=== PATIENT | male | born 1970 | race Two or more races ===

== ENCOUNTER 2018-12-11 10:36 | Inpatient (IN) | payer OTHER ==
[2018-12-11] MEDS ORDERED: ACETAMINOPHEN 1000 MG/100 ML VIAL (NON FORMULARY) IVPB ONE (11:20)
[2018-12-11] MEDS ORDERED: SODIUM CHLORIDE 1,000 ML IV STA (11:20)
--- NOTE | 2018-12-11 11:20 | PDOC ---
History of Present Illness - General Chief Complaint: Pain, Acute Stated Complaint: LT SIDED BACK PAIN Time Seen by Provider: 12/11/18 10:58 History Source: Patient Exam Limitations: No Limitations - History of Present Illness Initial Comments: 12/11/18 14:55 Patient is a 48-year-old male with past medical history of right-sided nephrectomy for reoccurring infections, left-sided kidney cyst, presents to the emergency department today for hematuria and left-sided flank pain since yesterday. Patient states that it also hurts when he pees and he has associated nausea and chills. He states he took Tylenol at home with no relief of his symptoms. Patient has not had nephrology follow-up in the last few months as he moved from [facility], [place]. Denies fevers, vomiting, diarrhea, constipation, chest pain and shortness of breath. Past History - Travel Traveled outside of the country in the last 30 days: No Close contact w/someone who was outside of country & ill: No - Past Medical History Allergies/Adverse Reactions: Allergies Allergy/AdvReac Type Severity Reaction Status Date / Time Penicillins Allergy Severe Hives Verified 12/11/18 10:43 Home Medications: Ambulatory Orders Amlodipine Besylate [Norvasc -] 5 mg PO DAILY 12/11/18 Hydralazine HCl 25 mg PO DAILY 12/11/18 Paroxetine HCl [Paxil] 30 mg PO DAILY 12/11/18 COPD: No Diabetes: Yes Disorders: Yes (right kidney removed from "many issues") HTN: Yes Kidney Stones: Yes - Immunization History Immunization Up to Date: Yes - Suicide/Smoking/Psychosocial Hx Smoking History: Never smoked Hx Alcohol Use: No Drug/Substance [facility] Review of Systems - Review of Systems Able to Perform ROS?: Yes Comments:: 12/11/18 11:12 CONSTITUTIONAL: Present: chills Absent: fever, chills, diaphoresis, generalized weakness, malaise, loss of appetite HEENT: Absent: rhinorrhea, nasal congestion, throat pain, throat swelling, difficulty swallowing, mouth swelling, ear pain, eye pain, visual Changes CARDIOVASCULAR: Absent: chest pain, loss of consciousness, palpitations, irregular heart rate, peripheral edema RESPIRATORY: Absent: cough, shortness of breath, dyspnea with exertion, orthopnea, wheezing, stridor, hemoptysis GASTROINTESTINAL: Present: nausea Absent: abdominal pain, abdominal distension, vomiting, diarrhea, constipation, melena, hematochezia GENITOURINARY: Present: Flank pain, hematuria Absent: dysuria, frequency, urgency, hesitancy, genital pain MUSCULOSKELETAL: Absent: myalgia, arthralgia, joint swelling SKIN: Absent: rash, itching, pallor HEMATOLOGIC/IMMUNOLOGIC: Present: frequent kidney infections Absent: easy bleeding, easy bruising, lymphadenopathy ENDOCRINE: Absent: unexplained weight gain, unexplained weight loss, heat intolerance, cold intolerance NEUROLOGIC: Absent: headache, focal weakness or paresthesias, dizziness, unsteady gait, seizure, mental status changes, bladder or bowel incontinence PSYCHIATRIC: Absent: anxiety, depression, suicidal or homicidal ideation, hallucinations. Is the patient limited Romanian proficient: No *Physical Exam - Vital Signs Last Vital Signs Temp Pulse Resp BP Pulse Ox 98.1 F 122 H 20 146/97 98 12/11/18 10:40 12/11/18 10:40 12/11/18 10:40 12/11/18 10:40 12/11/18 10:40 - Physical Exam Comments: 12/11/18 14:52 GENERAL: Well developed, well nourished. Awake and alert. Pacing the vertical area, appears uncomfortable. HEENT: Normocephalic, atraumatic. PERRLA, EOMI. No conjunctival pallor. Sclera are non- icteric. Moist mucous membranes. Oropharynx is clear. NECK: Supple. Full ROM. No JVD. Carotid pulses 2+ and symmetric, without bruits. No thyromegaly. No lymphadenopathy. CARDIOVASCULAR: Regular rate and rhythm. No murmurs, rubs, or gallops. Distal pulses are 2+ and symmetric. PULMONARY: No evidence of respiratory distress. Lungs clear to auscultation bilaterally. No wheezing, rales or rhonchi. ABDOMINAL: Soft. Non-tender. Non-distended. No rebound or guarding. No organomegaly. Normoactive bowel sounds. MUSCULOSKELETAL Normal range of motion at all joints. No bony deformities or tenderness. (+) L CVA tenderness. EXTREMITIES: No cyanosis. No clubbing. No edema. No calf tenderness. SKIN: Warm and dry. Normal capillary refill. No rashes. No jaundice. NEUROLOGICAL: Alert, awake, appropriate. Cranial nerves 2-12 intact. No deficits to light touch and temperature in face, upper extremities and lower extremities. No motor deficits in the in face, upper extremities and lower extremities. Normoreflexic in the upper and lower extremities. Normal speech. Toes are down- going bilaterally. Gait is normal without ataxia. PSYCHIATRIC: Cooperative. Good eye contact. Appropriate mood and affect. 12/11/18 14:53 Moderate Sedation - Procedure Monitoring Vital Signs: Procedure Monitoring Vital Signs Temperature 98.1 F 12/11/18 10:40 Pulse Rate 122 H 12/11/18 10:40 Respiratory Rate 20 12/11/18 10:40 Blood Pressure 146/97 12/11/18 10:40 O2 Sat by Pulse Oximetry (%) 98 12/11/18 10:40 ED Treatment Course - LABORATORY CBC & Chemistry Diagram: 12/11/18 11:44 12/11/18 11:44 Medical Decision Making - Medical Decision Making 12/11/18 14:55 Patient is a 48-year-old male past medical history of right-sided nephrectomy, left-sided kidney cyst, who presents to the ER today for 1 day of L flank pain, nausea and chills. On exam patient with significant left-sided CVA tenderness. Labs, urine, spiral CT, renal ultrasound ordered. IV Tylenol, fluids given. Urine shows trace leukocytes, 20 white blood cells. Nitrate negative CAT scan shows no stones, hydronephrosis Renal ultrasound shows no evidence of cyst on the left. Most likely pyelonephritis at this time given flank pain and nausea with associated UTI. Pen allergic, dose of levaquin ordered. Oxycodone for pain Given patient is high risk as he only has one working kidney Will admit. Margaret welch. 12/11/18 15:32 Case discussed with SWAGER OPERATOR Naila Simmons, will take patient for obs under Dr. Stafford *DC/Admit/Observation/Transfer Diagnosis at time of Disposition: Acute pyelonephritis - Discharge Dispostion Condition at time of disposition: Stable Decision to Admit order: Yes - Referrals - Patient Instructions - Post Discharge Activity
--- NOTE | 2018-12-11 11:25 | PDOC ---
*Physical Exam - Vital Signs Last Vital Signs Temp Pulse Resp BP Pulse Ox 98.1 F 122 H 20 146/97 98 12/11/18 10:40 12/11/18 10:40 12/11/18 10:40 12/11/18 10:40 12/11/18 10:40 ED Treatment Course - LABORATORY CBC & Chemistry Diagram: 12/12/18 05:40 12/11/18 11:44 Medical Decision Making - Medical Decision Making 12/11/18 11:24 48 yo m with prior history of right nephrectomy 2/2 pyelonephritis Pt presents with left CVA tenderness and pain No fevers or chills Will do labs, Spiral CT Laboratory Tests 12/11/18 12/11/18 12/11/18 11:44 11:44 13:46 WBC 8.0 Hgb 14.0 Hct 41.4 Plt Count 266 BUN 16 Creatinine 1.4 H Urine Ketones Trace H Ur Leukocyte Esterase 1+ H Urine WBC (Auto) 9 Urine RBC (Auto) 2 Urine Bacteria Moderate Anticipate admission Levaquin ordered (pt reports severe PCN allergy) Agree with plan by FALLON Roach 12/11/18 11:28 *DC/Admit/Observation/Transfer Diagnosis at time of Disposition: Acute pyelonephritis - Discharge Dispostion Condition at time of disposition: Stable - Referrals - Patient Instructions - Post Discharge Activity
[2018-12-11] MEDS ORDERED: ACETAMINOPHEN INJECTION 100 ML IVPB ONE (11:39)
[2018-12-11 12:04] LABS: BASO % 0.5 % (0-2.0); EOS % 1.6 % (0-4.5); HEMATOCRIT 41.4 % (35.4-49); LYMPH % 23.7 % (8-40); MCHC 33.7 g/dl (32.0-35.9); MEAN CELL VOLUME 83.2 fl (80-96); MEAN PLT VOLUME 8.7 fl (7.5-11.1); MONO % 8.3 % (3.8-10.2); NEUT % 65.9 % (42.8-82.8); PLATELET COUNT 266 K/MM3 (134-434); RBC 4.98 M/mm3 (4.00-5.60); RDW 14.6 % (11.9-15.9)
[2018-12-11 12:51] LABS: ALBUMIN 3.7 g/dl (3.4-5.0); ALK PHOS 86 U/L (45-117); ANION GAP 5 MMOL/L (8-16); BILIRUBIN,TOTAL 0.2 mg/dL (0.2-1); BLOOD UREA NITROGEN 16 mg/dL (7-18); CALCIUM 8.8 mg/dL (8.5-10.1); CHLORIDE 110 mmol/L (98-107); CO2 27 mmol/L (21-32); CREATININE 1.4 mg/dL (0.55-1.3); GLUCOSE,RANDOM 121 mg/dL (74-106); SGOT/AST 15 U/L (15-37); SGPT/ALT 25 U/L (13-61); SODIUM 142 mmol/L (136-145); TOT PROT 7.2 g/dl (6.4-8.2)
[2018-12-11 13:03] LABS: INR 0.99 (0.83-1.09); PROTHROMBIN TIME (PATIENT) 11.7 SEC (9.7-13.0)
[2018-12-11 14:16] LABS: URINE APPEARANCE SLCLOUDY; URINE BILIRUBIN NEGATIVE (<2.0 mg/dL); URINE COLOR YELLOW; URINE GLUCOSE (UA) NEGATIVE (NEGATIVE); URINE KETONE TRACE (NEGATIVE); URINE LEUK ESTERASE 1+ (NEGATIVE); URINE NITRITE NEGATIVE (NEGATIVE); URINE PROTEIN NEGATIVE (NEGATIVE)
[2018-12-11 14:18] LABS: CALCIUM OXALATE CRYSTALS RARE /hpf (NONE SEEN); EPI CELLS RARE /HPF (FEW); URINE BACTERIA MODERATE /hpf (NONE SEEN); URINE MUCUS RARE
[2018-12-11] MEDS ORDERED: oxyCODONE HCL 5 MG TABLET PO ONE (14:34)
[2018-12-11] MEDS ORDERED: METOCLOPRAMIDE HCL INJECTION 10 MG/2 ML VIAL IVPB ONE (14:52)
[2018-12-11] MEDS ORDERED: oxyCODONE HCL 5 MG TABLET ONE (15:42)
--- NOTE | 2018-12-11 15:45 | PN ---
Physical Exam: SUBJECTIVE: Patient seen and examined OBJECTIVE: Vital Signs Period Temp Pulse Resp BP Sys/Ann Pulse Ox Last 24 Hr 98.1 F 122 20 146/97 98 GENERAL: The patient is awake, alert, and fully oriented, in no acute distress. HEAD: Normal with no signs of trauma. EYES: PERRL, extraocular movements intact, sclera anicteric, conjunctiva clear. No ptosis. ENT: Ears normal, nares patent, oropharynx clear without exudates, moist mucous membranes. NECK: Trachea midline, full range of motion, supple. LUNGS: Breath sounds equal, clear to auscultation bilaterally, no wheezes, no crackles, no accessory muscle use. HEART: Regular rate and rhythm, S1, S2 without murmur, rub or gallop. ABDOMEN: Soft, nontender, nondistended, normoactive bowel sounds, no guarding, no rebound, no hepatosplenomegaly, no masses. EXTREMITIES: 2+ pulses, warm, well-perfused, no edema. NEUROLOGICAL: Cranial nerves II through XII grossly intact. Normal speech, gait not observed. PSYCH: Normal mood, normal affect. SKIN: Warm, dry, normal turgor, no rashes or lesions noted Laboratory Results - last 24 hr 12/11/18 12/11/18 12/11/18 11:44 11:44 11:44 WBC 8.0 RBC 4.98 Hgb 14.0 Hct 41.4 MCV 83.2 MCH 28.0 MCHC 33.7 RDW 14.6 Plt Count 266 MPV 8.7 Absolute Neuts (auto) 5.3 Neutrophils % 65.9 Lymphocytes % 23.7 Monocytes % 8.3 Eosinophils % 1.6 Basophils % 0.5 Nucleated RBC % 0 PT with INR 11.70 INR 0.99 Sodium 142 Potassium 4.0 Chloride 110 H Carbon Dioxide 27 Anion Gap 5 L BUN 16 Creatinine 1.4 H Creat Clearance w eGFR 54.56 Random Glucose 121 H Lactic Acid Calcium 8.8 Total Bilirubin 0.2 AST 15 ALT 25 Alkaline Phosphatase 86 Total Protein 7.2 Albumin 3.7 Urine Color Urine Appearance Urine pH Ur Specific [place] Urine Protein Urine Glucose (UA) Urine Ketones Urine Blood Urine Nitrite Urine Bilirubin Urine Urobilinogen Ur Leukocyte Esterase Urine WBC (Auto) Urine RBC (Auto) Ur Epithelial Cells Calcium Oxalate Crystal Urine Bacteria Urine Mucus 12/11/18 12/11/18 11:44 13:46 WBC RBC Hgb Hct MCV MCH MCHC RDW Plt Count MPV Absolute Neuts (auto) Neutrophils % Lymphocytes % Monocytes % Eosinophils % Basophils % Nucleated RBC % PT with INR INR Sodium Potassium Chloride Carbon Dioxide Anion Gap BUN Creatinine Creat Clearance w eGFR Random Glucose Lactic Acid 0.9 Calcium Total Bilirubin AST ALT Alkaline Phosphatase Total Protein Albumin Urine Color Yellow Urine Appearance Slcloudy Urine pH 5.0 Ur Specific [place] 1.029 Urine Protein Negative Urine Glucose (UA) Negative Urine Ketones Trace H Urine Blood Negative Urine Nitrite Negative Urine Bilirubin Negative Urine Urobilinogen 2.0 Ur Leukocyte Esterase 1+ H Urine WBC (Auto) 9 Urine RBC (Auto) 2 Ur Epithelial Cells Rare Calcium Oxalate Crystal Rare Urine Bacteria Moderate Urine Mucus Rare Active Medications Generic Name Dose Route Start Last Admin Trade Name Freq PRN Reason Stop Dose Admin Levofloxacin 750 mg in 150 mls @ 100 mls/hr 12/11/18 14:36 Levaquin 750 Mg Premixed Ivpb - IVPB 12/11/18 16:05 ONCE ONE Protocol ASSESSMENT/PLAN:
[2018-12-11] MEDS ORDERED: METOCLOPRAMIDE HCL INJECTION 10 MG/2 ML VIAL ONE (16:36)
[2018-12-11] MEDS ORDERED: SODIUM CHLORIDE 1,000 ML IV SCH (16:45)
--- NOTE | 2018-12-11 16:53 | HP ---
CHIEF COMPLAINT: left flank pain, burning with urination, general malaise PCP: Mal Nair MD. [facility] HISTORY OF PRESENT ILLNESS: Patient is a 48 year old male with past medical history of right-sided nephrectomy in 2014 (done at [facility] with Dr. Miles) for recurrent kidney infections. His other past medical history includes hypertension and diabetes. He comes to the ED today for left flank pain that began about 1 week ago. Left flank pain got worse over the last day and accompained with painful urination, left flank tenderness and nausea which prompted an ED visit. He tried Tylenol at home but without relief. He denies fevers, chills, diarrhea, constipation or chest pain. In the ED a CT scan was negative for hydronephrosis or stranding. An ultrasound sound was negative for acute findings. His UA shows WBC 9, +1 leuks , cloudy urine with moderate bacteria. In the ED he was given 750mg of Levaquin and started on IV hydration. Imaging: Abd Ct/spiral CT: s/p right nephrectomy without evidence of left sided urinary tract calculi, obstructive or acute pathology Renal ultrasound: normal left kidney, no hydro or acute pathology ER course was notable for: (1) levaquin 750mg (2) no signs of sepsis (3) Recent Travel: n/a PAST MEDICAL HISTORY: hypertension, diabetes PAST SURGICAL HISTORY: right nephrectomy 2014 Social History: Smoking: smokes marijuana daily. per patient he smokes "a lot of marijuana everyday" Alcohol: denies Drugs: marijuana Family History: Allergies Penicillins Allergy (Severe, Verified 12/11/18 10:43) Hives HOME MEDICATIONS: Home Medications Medication Instructions Recorded Amlodipine Besylate [Norvasc -] 5 mg PO DAILY 12/11/18 Hydralazine HCl 25 mg PO DAILY 12/11/18 Paroxetine HCl [Paxil] 30 mg PO DAILY 12/11/18 REVIEW OF SYSTEMS CONSTITUTIONAL: Absent: fever, chills, diaphoresis, generalized weakness, malaise, loss of appetite, weight change HEENT: Absent: rhinorrhea, nasal congestion, throat pain, throat swelling, difficulty swallowing, mouth swelling, ear pain, eye pain, visual changes CARDIOVASCULAR: Absent: chest pain, syncope, palpitations, irregular heart rate, lightheadedness , peripheral edema RESPIRATORY: Absent: cough, shortness of breath, dyspnea with exertion, orthopnea, wheezing, stridor, hemoptysis GASTROINTESTINAL: Absent: abdominal pain, abdominal distension, nausea, vomiting, diarrhea, constipation, melena, hematochezia GENITOURINARY: Present: hematuria, left flank pain and tenderness. painful urination MUSCULOSKELETAL: Absent: myalgia, arthralgia, joint swelling, back pain, neck pain SKIN: Absent: rash, itching, pallor HEMATOLOGIC/IMMUNOLOGIC: Absent: easy bleeding, easy bruising, lymphadenopathy, frequent infections ENDOCRINE: Absent: unexplained weight gain, unexplained weight loss, heat intolerance, cold intolerance NEUROLOGIC: Absent: headache, focal weakness or paresthesias, dizziness, unsteady gait, seizure, mental status changes, bladder or bowel incontinence PSYCHIATRIC: Absent: anxiety, depression, suicidal or homicidal ideation, hallucinations. PHYSICAL EXAMINATION Vital Signs - 24 hr 12/11/18 12/11/18 10:40 15:44 Temperature 98.1 F 98.4 F Pulse Rate 122 H Pulse Rate [ 87 Right Radial] Respiratory 20 18 Rate Blood Pressure 146/97 Blood Pressure 118/79 [Right Arm] O2 Sat by Pulse 98 98 Oximetry (%) GENERAL: Awake, alert, and fully oriented, in no acute distress. HEAD: Normal with no signs of trauma. EYES: Pupils equal, round and reactive to light, extraocular movements intact, sclera anicteric, conjunctiva clear. No lid lag. EARS, NOSE, THROAT: Ears normal, nares patent, oropharynx clear without exudates. Moist mucous membranes. NECK: Normal range of motion, supple without lymphadenopathy, JVD, or masses. LUNGS: Breath sounds equal, clear to auscultation bilaterally. No wheezes HEART: Regular rate and rhythm ABDOMEN: Soft, nontender, not distended, right sided abdominal healed surgical scar from nephrectomy removal. +tenderness of palpation of left flank MUSCULOSKELETAL: Normal range of motion at all joints. No bony deformities or tenderness. No CVA tenderness. UPPER EXTREMITIES: No peripheral edema. LOWER EXTREMITIES: No peripheral edema. NEUROLOGICAL: Normal speech. Normal gait. PSYCHIATRIC: Cooperative. Good eye contact. Appropriate mood and affect. SKIN: Warm, dry, normal turgor, no rashes or lesions noted, normal capillary refill. Laboratory Results - last 24 hr 12/11/18 12/11/18 12/11/18 11:44 11:44 11:44 WBC 8.0 RBC 4.98 Hgb 14.0 Hct 41.4 MCV 83.2 MCH 28.0 MCHC 33.7 RDW 14.6 Plt Count 266 MPV 8.7 Absolute Neuts (auto) 5.3 Neutrophils % 65.9 Lymphocytes % 23.7 Monocytes % 8.3 Eosinophils % 1.6 Basophils % 0.5 Nucleated RBC % 0 PT with INR 11.70 INR 0.99 Sodium 142 Potassium 4.0 Chloride 110 H Carbon Dioxide 27 Anion Gap 5 L BUN 16 Creatinine 1.4 H Creat Clearance w eGFR 54.56 Random Glucose 121 H Lactic Acid Calcium 8.8 Total Bilirubin 0.2 AST 15 ALT 25 Alkaline Phosphatase 86 Total Protein 7.2 Albumin 3.7 Urine Color Urine Appearance Urine pH Ur Specific [place] Urine Protein Urine Glucose (UA) Urine Ketones Urine Blood Urine Nitrite Urine Bilirubin Urine Urobilinogen Ur Leukocyte Esterase Urine WBC (Auto) Urine RBC (Auto) Ur Epithelial Cells Calcium Oxalate Crystal Urine Bacteria Urine Mucus 12/11/18 12/11/18 11:44 13:46 WBC RBC Hgb Hct MCV MCH MCHC RDW Plt Count MPV Absolute Neuts (auto) Neutrophils % Lymphocytes % Monocytes % Eosinophils % Basophils % Nucleated RBC % PT with INR INR Sodium Potassium Chloride Carbon Dioxide Anion Gap BUN Creatinine Creat Clearance w eGFR Random Glucose Lactic Acid 0.9 Calcium Total Bilirubin AST ALT Alkaline Phosphatase Total Protein Albumin Urine Color Yellow Urine Appearance Slcloudy Urine pH 5.0 Ur Specific [place] 1.029 Urine Protein Negative Urine Glucose (UA) Negative Urine Ketones Trace H Urine Blood Negative Urine Nitrite Negative Urine Bilirubin Negative Urine Urobilinogen 2.0 Ur Leukocyte Esterase 1+ H Urine WBC (Auto) 9 Urine RBC (Auto) 2 Ur Epithelial Cells Rare Calcium Oxalate Crystal Rare Urine Bacteria Moderate Urine Mucus Rare ASSESSMENT/PLAN: Patient is a 48 year old male with past medical history of right-sided nephrectomy in 2014 (done at [facility] with Dr. Miles) for recurrent kidney infections. His other past medical history includes hypertension and diabetes. He comes to the ED today for left flank pain that began about 1 week ago. Left flank pain got worse over the last day and accompanied with painful urination, left flank tenderness and nausea which prompted an ED visit. He tried Tylenol at home but without relief. He denies fevers, chills, diarrhea, constipation or chest pain. In the ED a CT scan was negative for hydronephrosis or stranding. An ultrasound sound was negative for acute findings. His UA shows WBC 9, +1 leuks , moderate bacteria with cloudy urine. In the ED he was given 750mg of Levaquin and started on IV hydration. Imaging: Abd Ct/spiral CT: s/p right nephrectomy without evidence of left sided urinary tract calculi, obstructive or acute pathology Renal ultrasound: normal left kidney, no hydro or acute pathology ------ right nephrectomy 2014 Hypertension Diabetes ----- Renal Left flank pain Imaging done here without acute pathology UA with signs of infection. Urine culture pending will need to obtain the records from [facility] of right nephrectomy. patient will give consent Start IVF @ 75cc Levaquin 750mg IV given in the ED Creat 1.4 Renal consult Card: Hypertension On Amlodopine and Hydralzeine. BP monitoring Endocrine: Diabetes: On metformin at home [id number] in a.m. Start Novolog with SS hold metformin until discharge Psyche: Substance abuse Patient admits to daily heavy use of marijuana Counseled on cessation fen NS @ 75cc/hr monitor electrolytes diabetic diet full code Visit type - Emergency Visit Emergency Visit: Yes ED Registration Date: 12/11/18 Care time: The patient presented to the Emergency Department on the above date and was hospitalized for further evaluation of their emergent condition. - New Patient This patient is new to me today: No - Critical Care Critical Care patient: No
[2018-12-11] MEDS ORDERED: ACETAMINOPHEN 325 MG TABLET (FP) PO PRN (17:24)
[2018-12-11 20:53] VITALS: BMI 27.8
[2018-12-11] MEDS: hydrALAZINE HCL 25 MG TABLET (FP) PO SCH (21:03)
[2018-12-11] MEDS: INSULIN SLIDING SCALE (NOVOLOG) 1 VIAL SQ SCH (21:03)
[2018-12-12] MEDS: oxyCODONE HCL 5 MG TABLET PO PRN ×2 (06:08→14:35)
[2018-12-12] MEDS: INSULIN SLIDING SCALE (NOVOLOG) 1 VIAL SQ SCH ×4 (06:14→22:00)
[2018-12-12 06:53] LABS: HEMATOCRIT 38.3 % (35.4-49); HEMOGLOBIN 13.1 GM/dL (11.7-16.9); MCH 28.6 pg (25.7-33.7); MCHC 34.1 g/dl (32.0-35.9); MEAN PLT VOLUME 8.9 fl (7.5-11.1); PLATELET COUNT 247 K/MM3 (134-434); RBC 4.56 M/mm3 (4.00-5.60); RDW 14.3 % (11.9-15.9); WHITE BLOOD COUNT 5.8 K/mm3 (4.0-10.0)
[2018-12-12 08:10] LABS: ALBUMIN 3.1 g/dl (3.4-5.0); ALK PHOS 70 U/L (45-117); ANION GAP 2 MMOL/L (8-16); BILIRUBIN,TOTAL 0.4 mg/dL (0.2-1); BLOOD UREA NITROGEN 13 mg/dL (7-18); CHLORIDE 112 mmol/L (98-107); CO2 27 mmol/L (21-32); CREATININE 1.2 mg/dL (0.55-1.3); GLUCOSE,RANDOM 102 mg/dL (74-106); MAGNESIUM 1.9 mg/dL (1.8-2.4); POTASSIUM 3.9 mmol/L (3.5-5.1); SGOT/AST 13 U/L (15-37); SGPT/ALT 19 U/L (13-61); SODIUM 141 mmol/L (136-145); TOT PROT 6.2 g/dl (6.4-8.2)
[2018-12-12] MEDS: amLODIPine BESYLATE 5 MG TABLET (FP) PO SCH (09:25)
[2018-12-12] MEDS: PARoxetine HCL 20 MG TABLET (FP) PO SCH (09:25)
[2018-12-12] MEDS: hydrALAZINE HCL 25 MG TABLET (FP) PO SCH ×2 (09:25→22:00)
[2018-12-12] MEDS ORDERED: hydrALAZINE HCL 25 MG TABLET (FP) PO SCH (10:00)
--- NOTE | 2018-12-12 11:06 | PN ---
Physical Exam: SUBJECTIVE: Patient seen and examined at the bedside. had some left flank pain overnight relieved with oxycodone OBJECTIVE: received surgical report awaiting pathology report Vital Signs Period Temp Pulse Resp BP Sys/Ann Pulse Ox Last 24 Hr 97.6 F-98.4 F 77-87 16-19 118-142/79-97 97-98 GENERAL: Awake, alert, and fully oriented, in no acute distress. HEAD: Normal with no signs of trauma. EYES: Pupils equal, round and reactive to light, extraocular movements intact, sclera anicteric, conjunctiva clear. No lid lag. EARS, NOSE, THROAT: Ears normal, nares patent, oropharynx clear without exudates. Moist mucous membranes. NECK: Normal range of motion, supple without lymphadenopathy, JVD, or masses. LUNGS: Breath sounds equal, clear to auscultation bilaterally. No wheezes HEART: Regular rate and rhythm ABDOMEN: Soft, nontender, not distended, right sided abdominal healed surgical scar from nephrectomy removal. +tenderness of palpation of left flank MUSCULOSKELETAL: Normal range of motion at all joints. No bony deformities or tenderness. No CVA tenderness. UPPER EXTREMITIES: No peripheral edema. LOWER EXTREMITIES: No peripheral edema. NEUROLOGICAL: Normal speech. Normal gait. PSYCHIATRIC: Cooperative. Good eye contact. Appropriate mood and affect. SKIN: Warm, dry, normal turgor, no rashes or lesions noted, normal capillary refill. Laboratory Results - last 24 hr 12/11/18 12/11/18 12/11/18 11:44 11:44 11:44 WBC 8.0 RBC 4.98 Hgb 14.0 Hct 41.4 MCV 83.2 MCH 28.0 MCHC 33.7 RDW 14.6 Plt Count 266 MPV 8.7 Absolute Neuts (auto) 5.3 Neutrophils % 65.9 Lymphocytes % 23.7 Monocytes % 8.3 Eosinophils % 1.6 Basophils % 0.5 Nucleated RBC % 0 PT with INR 11.70 INR 0.99 Sodium 142 Potassium 4.0 Chloride 110 H Carbon Dioxide 27 Anion Gap 5 L BUN 16 Creatinine 1.4 H Creat Clearance w eGFR 54.56 Random Glucose 121 H POC Glucometer Lactic Acid Calcium 8.8 Magnesium Total Bilirubin 0.2 AST 15 ALT 25 Alkaline Phosphatase 86 Total Protein 7.2 Albumin 3.7 Urine Color Urine Appearance Urine pH Ur Specific Wayside Urine Protein Urine Glucose (UA) Urine Ketones Urine Blood Urine Nitrite Urine Bilirubin Urine Urobilinogen Ur Leukocyte Esterase Urine WBC (Auto) Urine RBC (Auto) Ur Epithelial Cells Calcium Oxalate Crystal Urine Bacteria Urine Mucus 12/11/18 12/11/18 12/11/18 11:44 13:46 20:55 WBC RBC Hgb Hct MCV MCH MCHC RDW Plt Count MPV Absolute Neuts (auto) Neutrophils % Lymphocytes % Monocytes % Eosinophils % Basophils % Nucleated RBC % PT with INR INR Sodium Potassium Chloride Carbon Dioxide Anion Gap BUN Creatinine Creat Clearance w eGFR Random Glucose POC Glucometer 90 Lactic Acid 0.9 Calcium Magnesium Total Bilirubin AST ALT Alkaline Phosphatase Total Protein Albumin Urine Color Yellow Urine Appearance Slcloudy Urine pH 5.0 Ur Specific Wayside 1.029 Urine Protein Negative Urine Glucose (UA) Negative Urine Ketones Trace H Urine Blood Negative Urine Nitrite Negative Urine Bilirubin Negative Urine Urobilinogen 2.0 Ur Leukocyte Esterase 1+ H Urine WBC (Auto) 9 Urine RBC (Auto) 2 Ur Epithelial Cells Rare Calcium Oxalate Crystal Rare Urine Bacteria Moderate Urine Mucus Rare 12/12/18 12/12/18 12/12/18 05:40 05:40 06:10 WBC 5.8 RBC 4.56 Hgb 13.1 Hct 38.3 MCV 84.0 MCH 28.6 MCHC 34.1 RDW 14.3 Plt Count 247 MPV 8.9 Absolute Neuts (auto) Neutrophils % Lymphocytes % Monocytes % Eosinophils % Basophils % Nucleated RBC % PT with INR INR Sodium 141 Potassium 3.9 Chloride 112 H Carbon Dioxide 27 Anion Gap 2 L BUN 13 Creatinine 1.2 Creat Clearance w eGFR > 60 Random Glucose 102 POC Glucometer 110 Lactic Acid Calcium 8.0 L Magnesium 1.9 Total Bilirubin 0.4 AST 13 L ALT 19 Alkaline Phosphatase 70 Total Protein 6.2 L Albumin 3.1 L Urine Color Urine Appearance Urine pH Ur Specific Wayside Urine Protein Urine Glucose (UA) Urine Ketones Urine Blood Urine Nitrite Urine Bilirubin Urine Urobilinogen Ur Leukocyte Esterase Urine WBC (Auto) Urine RBC (Auto) Ur Epithelial Cells Calcium Oxalate Crystal Urine Bacteria Urine Mucus Active Medications Generic Name Dose Route Start Last Admin Trade Name Freq PRN Reason Stop Dose Admin Acetaminophen 650 mg 12/11/18 17:24 12/11/18 20:57 Tylenol - PO 650 mg Q6H PRN Administration PAIN LEVEL 4-6 Amlodipine Besylate 5 mg 12/12/18 10:00 12/12/18 09:25 Norvasc - PO 5 mg DAILY JOHN Administration Hydralazine HCl 25 mg 12/11/18 22:00 12/12/18 09:25 Apresoline - PO 25 mg BID JOHN Administration Sodium Chloride 1,000 mls @ 75 mls/hr 12/11/18 16:45 12/11/18 20:33 Normal Saline - IV 75 mls/hr ASDIR JOHN Administration Insulin Aspart 1 vial 12/11/18 22:00 12/12/18 06:14 Novolog Vial Sliding Scale - SQ Not Given ACHS JOHN Protocol Oxycodone HCl 5 mg 12/11/18 22:48 12/12/18 06:08 Roxicodone - PO 5 mg Q6H PRN Administration PAIN LEVEL 7 - 10 Paroxetine HCl 30 mg 12/12/18 10:00 12/12/18 09:25 Paxil - PO 30 mg DAILY JOHN Administration ASSESSMENT/PLAN: Patient is a 48 year old male with past medical history of right-sided nephrectomy in 2014 (done at [facility] with Dr. Miles) for recurrent kidney infections. His other past medical history includes hypertension and diabetes. He comes to the ED today for left flank pain that began about 1 week ago. Left flank pain got worse over the last day and accompanied with painful urination, left flank tenderness and nausea which prompted an ED visit. He tried Tylenol at home but without relief. He denies fevers, chills, diarrhea, constipation or chest pain. In the ED a CT scan was negative for hydronephrosis or stranding. An ultrasound sound was negative for acute findings. His UA shows WBC 9, +1 leuks , moderate bacteria with cloudy urine. In the ED he was given 750mg of Levaquin and started on IV hydration. Imaging: Abd Ct/spiral CT: s/p right nephrectomy without evidence of left sided urinary tract calculi, obstructive or acute pathology Renal ultrasound: normal left kidney, no hydro or acute pathology ------ right nephrectomy 2014 Hypertension Diabetes ----- Renal Left Pylonephritis Left flank pain Imaging done here without acute pathology UA with signs of infection. Urine culture with non lactose kosher sealer >100,000 Received surgical report of right nephrectomy. awaiting pathology report. On IVF 100/cc/hr PCN Allergy, ID consulted Creat 1.2 Card: Hypertension. controlled On Amlodopine and Hydralzeine Endocrine: Diabetes: On metformin at home fasting bgms controlled On Novolog with SS hold metformin until discharge Psyche: Substance abuse Patient admits to daily heavy use of marijuana Counseled on cessation fen NS @ 100cc/hr monitor electrolytes diabetic diet full code Visit type - Emergency Visit Emergency Visit: Yes ED Registration Date: 12/11/18 Care time: The patient presented to the Emergency Department on the above date and was hospitalized for further evaluation of their emergent condition. - New Patient This patient is new to me today: No - Critical Care Critical Care patient: No - Discharge Referral Referred to [facility] Med P.C.: No
--- NOTE | 2018-12-12 11:10 | CON.ID ---
Consult Consult Specialty:: infectious diseases Referred by:: Naila Reason for Consultation:: pyelo,uti - History of Present Illness Chief Complaint: flank pain History of Present Illness: 48 year old male with past medical history of right-sided nephrectomy in 2015 for recurrent kidney infections. His other past medical history includes hypertension and diabetes. patient started having flank pain which started one week back patients flank pain increased and started having painful urination and also left flank tenderness patient tried pain meds did not help denies any fever chills and dirrhoea - History Source History Provided By: Patient Limitations to Obtaining History: No Limitations - Alcohol/Substance Use Hx Alcohol Use: No - Smoking History Smoking history: Former smoker Have you smoked in the past 12 months: Yes If you are a former smoker, when did you quit?: 9 months Home Medications - Allergies Allergies/Adverse Reactions: Allergies Allergy/AdvReac Type Severity Reaction Status Date / Time Penicillins Allergy Severe Hives Verified 12/11/18 10:43 - Home Medications Home Medications: Ambulatory Orders Amlodipine Besylate [Norvasc -] 5 mg PO DAILY 12/11/18 Paroxetine HCl [Paxil] 30 mg PO DAILY 12/11/18 RX: Hydralazine HCl 25 mg PO BID 12/11/18 Review of Systems - Review of Systems Constitutional: reports: No Symptoms Eyes: reports: No Symptoms HENT: reports: No Symptoms Neck: reports: No Symptoms Cardiovascular: reports: No Symptoms Respiratory: reports: No Symptoms Gastrointestinal: reports: No Symptoms Genitourinary: reports: Flank Pain (left) Musculoskeletal: reports: No Symptoms Integumentary: reports: No Symptoms Neurological: reports: No Symptoms Endocrine: reports: No Symptoms Hematology/Lymphatic: reports: No Symptoms Psychiatric: reports: No Symptoms Physical Exam Vital Signs: Vital Signs Temperature 98.4 F 12/12/18 08:57 Pulse Rate 81 12/12/18 08:57 Respiratory Rate 18 12/12/18 08:57 Blood Pressure 138/97 12/12/18 08:57 O2 Sat by Pulse Oximetry (%) 98 12/11/18 22:00 Constitutional: Yes: Well Nourished, Calm, Mild Distress Eyes: Yes: Conjunctiva Clear HENT: Yes: Atraumatic, Normocephalic Cardiovascular: Yes: Regular Rate and Rhythm Respiratory: Yes: Regular, CTA Bilaterally Gastrointestinal: Yes: Normal Bowel Sounds, Soft Renal/: Yes: CVA Tenderness - Left Musculoskeletal: Yes: WNL Extremities: Yes: WNL Neurological: Yes: Alert, Oriented Psychiatric: Yes: Alert, Oriented Labs: CBC, BMP 12/12/18 05:40 12/12/18 05:40 Imaging - Results Cat Scan: Report Reviewed, Image Reviewed Assessment/Plan 48 year old male with past medical history of right-sided nephrectomy in 2014 ( done at [facility] with Dr. Miles) for recurrent kidney infections. His other past medical history includes hypertension and diabetes. ------ right nephrectomy 2014 Hypertension Diabetes ----- Left Pylonephritis Left flank pain, improving Hypertension. controlled Diabetes Substance abuse plan will stop levaquin will start on meropenam await for sensitivities and cx report rest as per the team
--- NOTE | 2018-12-12 12:06 | CONSULT ---
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 Pt had nephrectomy in 2015. He has had urine infections and pylonephritis in left kidney since then. Reports flank pain is mildly improved today. No fevers, chills, N/V/D, Abd pain , skin rash. He knows his kidney function is slightl reduced. Making urine. No PATEL, CP, SOB. PMHx: as above Allergies: NKDA Family Hx: NC Social Hx: No T/A/D ROS: as per HPI, all other pertinent ros negative Home Medications Medication Instructions Recorded Amlodipine Besylate [Norvasc -] 5 mg PO DAILY 12/11/18 Hydralazine HCl 25 mg PO BID 12/11/18 Paroxetine HCl [Paxil] 30 mg PO DAILY 12/11/18 Vital Signs Temperature 98.4 F 12/12/18 08:57 Pulse Rate 81 12/12/18 08:57 Respiratory Rate 18 12/12/18 08:57 Blood Pressure 138/97 12/12/18 08:57 O2 Sat by Pulse Oximetry (%) 98 12/11/18 22:00 NAD awake and alert neck supple RRR CTA soft NT/ND + CVA tenderness no Le edema, clubbing or cyanosis no focal neurologic defects CBC, BMP 12/12/18 05:40 12/12/18 05:40 Current Medications Acetaminophen (Tylenol -) 650 mg PO Q6H PRN PRN Reason: PAIN LEVEL 4-6 Last Admin: 12/11/18 20:57 Dose: 650 mg Amlodipine Besylate (Norvasc -) 5 mg PO DAILY JOHN Last Admin: 12/12/18 09:25 Dose: 5 mg Hydralazine HCl (Apresoline -) 25 mg PO BID JOHN Last Admin: 12/12/18 09:25 Dose: 25 mg Meropenem 1 gm/ Dextrose 100 mls @ 200 mls/hr IVPB Q8H-IV JOHN Sodium Chloride (Normal Saline -) 1,000 mls @ 100 mls/hr IV ASDIR JOHN Insulin Aspart (Novolog Vial Sliding Scale -) 1 vial SQ ACHS [facility]; Protocol Last Admin: 03/08/19 11:51 Dose: Not Given Oxycodone HCl (Roxicodone -) 5 mg PO Q6H PRN PRN Reason: PAIN LEVEL 7 - 10 Last Admin: 12/12/18 06:08 Dose: 5 mg Paroxetine HCl (Paxil -) 30 mg PO DAILY JOHN Last Admin: 12/12/18 09:25 Dose: 30 mg 48 year old gentleman with history of 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 #Suspected Pylonephritis #CKD with hx of right nephrectomy #Recurrent infections #Hypertension Renal function stable, suspect that this is his baseline CT showed no stones, stranding or pylonephrits Continue emperic abx as per ID, f/u final cultures if pain does not improve in 48 hours can consider additional imaging studies of the Abd Continue Hydralzine and amlodipine for BP control pain control, supportive care Thank you Will follow Jerome Arzate DO
[2018-12-12] MEDS: MEROPENEM 1 GM in DEXTROSE 5%-WATER 100 ML IVPB SCH ×2 (12:11→17:33)
[2018-12-12] MEDS: SODIUM CHLORIDE 1,000 ML IV SCH (12:11)
--- NOTE | 2018-12-12 14:26 | EKG ---
Test Reason : Blood Pressure : / mmHG Vent. Rate : 087 BPM Atrial Rate : 087 BPM P-R Int : 182 ms QRS Dur : 102 ms QT Int : 382 ms P-R-T Axes : 032 026 011 degrees QTc Int : 459 ms NORMAL SINUS RHYTHM MINIMAL VOLTAGE CRITERIA FOR LVH, MAY BE NORMAL VARIANT NO PREVIOUS ECGS AVAILABLE Confirmed by FEDE ARZATE MD ([id number]) on 12/12/2018 2:26:24 PM Referred By: Confirmed By:FEDE ARZATE MD
[2018-12-12] MEDS ORDERED: ONDANSETRON *ODT* 4 MG TABLET SL PRN (14:39)
[2018-12-12] MEDS ORDERED: ONDANSETRON 4 MG TABLET PO PRN (14:56)
[2018-12-13] MEDS ORDERED: PT OWN MED DRAWER 7, Y5N ONE (01:33)
[2018-12-13] MEDS: MEROPENEM 1 GM in DEXTROSE 5%-WATER 100 ML IVPB SCH ×3 (01:50→17:22)
[2018-12-13 06:54] LABS: BASO % 0.4 % (0-2.0); EOS % 2.1 % (0-4.5); HEMATOCRIT 39.2 % (35.4-49); HEMOGLOBIN 13.2 GM/dL (11.7-16.9); LYMPH % 26.2 % (8-40); MCH 27.7 pg (25.7-33.7); MCHC 33.6 g/dl (32.0-35.9); MEAN CELL VOLUME 82.5 fl (80-96); MEAN PLT VOLUME 8.5 fl (7.5-11.1); MONO % 7.4 % (3.8-10.2); NEUT % 63.9 % (42.8-82.8); PLATELET COUNT 269 K/MM3 (134-434); RBC 4.76 M/mm3 (4.00-5.60); RDW 14.4 % (11.9-15.9); WHITE BLOOD COUNT 6.7 K/mm3 (4.0-10.0)
[2018-12-13] MEDS: INSULIN SLIDING SCALE (NOVOLOG) 1 VIAL SQ SCH ×4 (06:54→21:16)
[2018-12-13 06:59] LABS: ALBUMIN 3.4 g/dl (3.4-5.0); ALK PHOS 75 U/L (45-117); ANION GAP 6 MMOL/L (8-16); BILIRUBIN,TOTAL 0.4 mg/dL (0.2-1); BLOOD UREA NITROGEN 12 mg/dL (7-18); CALCIUM 8.4 mg/dL (8.5-10.1); CHLORIDE 109 mmol/L (98-107); CO2 25 mmol/L (21-32); CREATININE 1.3 mg/dL (0.55-1.3); GLUCOSE,RANDOM 100 mg/dL (74-106); SGOT/AST 8 U/L (15-37); SGPT/ALT 16 U/L (13-61); SODIUM 141 mmol/L (136-145); TOT PROT 6.8 g/dl (6.4-8.2)
[2018-12-13] MEDS: oxyCODONE HCL 5 MG TABLET PO PRN ×2 (08:12→21:15)
[2018-12-13] MEDS: amLODIPine BESYLATE 5 MG TABLET (FP) PO SCH (08:59)
[2018-12-13] MEDS: hydrALAZINE HCL 25 MG TABLET (FP) PO SCH ×2 (09:00→21:15)
[2018-12-13] MEDS: PARoxetine HCL 20 MG TABLET (FP) PO SCH (09:00)
[2018-12-13] MEDS ORDERED: POLYETHYLENE GLYCOL 3350 119 GM BTL PO ONE (09:10)
--- NOTE | 2018-12-13 11:46 | PN ---
Progress Note (short form) - Note Progress Note: Renal follow up for CKD and flank pain Pt seen and examined at the bedside reports flan pain now improved to 5/10 from 07/16 no fevers Vital Signs Temperature 97.9 F 12/13/18 05:55 Pulse Rate 88 12/13/18 05:55 Respiratory Rate 18 12/13/18 05:55 Blood Pressure 138/86 12/13/18 05:55 O2 Sat by Pulse Oximetry (%) 97 12/12/18 21:00 Intake & Output 12/10/18 12/11/18 12/12/18 12/13/18 23:59 23:59 23:59 23:59 Intake Total 2650 250 Output Total 600 Balance 2050 250 Weight 85.411 kg NAD RRR CTA soft NT/ND + CVA tenderness no Le edema, clubbing or cyanosis CBC, BMP 12/13/18 06:00 12/13/18 06:00 Current Medications Acetaminophen (Tylenol -) 650 mg PO Q6H PRN PRN Reason: PAIN LEVEL 4-6 Last Admin: 12/11/18 20:57 Dose: 650 mg Amlodipine Besylate (Norvasc -) 5 mg PO DAILY [facility] Last Admin: 12/13/18 08:59 Dose: 5 mg Docusate Sodium (Colace -) 100 mg PO TID JOHN Hydralazine HCl (Apresoline -) 25 mg PO BID [facility] Last Admin: 12/13/18 09:00 Dose: 25 mg Meropenem 1 gm/ Dextrose 100 mls @ 200 mls/hr IVPB Q8H-IV JOHN Last Admin: 12/13/18 09:06 Dose: 200 mls/hr Sodium Chloride (Normal Saline -) 1,000 mls @ 100 mls/hr IV ASDIR [facility] Last Admin: 12/12/18 12:11 Dose: 100 mls/hr Insulin Aspart (Novolog Vial Sliding Scale -) 1 vial SQ ACHS [facility]; Protocol Last Admin: 12/13/18 10:53 Dose: Not Given Ondansetron HCl (Zofran -) 4 mg PO Q6H PRN PRN Reason: NAUSEA AND/OR VOMITING Last Admin: 12/12/18 15:50 Dose: 4 mg Oxycodone HCl (Roxicodone -) 5 mg PO Q6H PRN PRN Reason: PAIN LEVEL 7 - 10 Last Admin: 12/13/18 08:12 Dose: 5 mg Paroxetine HCl (Paxil -) 30 mg PO DAILY JOHN Last Admin: 12/13/18 09:00 Dose: 30 mg 48 year old gentleman with history of 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 #Suspected Pylonephritis #CKD with hx of right nephrectomy #Recurrent infections #Hypertension Renal function stable, suspect that this is his baseline CT showed no stones, stranding or pylonephrits Continue Antibiotics as per ID consider urology evaluation for recurrent UTI's (r/o bladder refux) Jerome Arzate DO
--- NOTE | 2018-12-13 13:10 | PN ---
Physical Exam: SUBJECTIVE: Patient seen and examined at the bedside. c/o of constipation. otherwise feels well OBJECTIVE: sensititives noted on meropenem Vital Signs Period Temp Pulse Resp BP Sys/Ann Pulse Ox Last 24 Hr 97.9 F-98.3 F 86-88 18-20 134-150/84-86 95-97 GENERAL: Awake, alert, and fully oriented, in no acute distress. HEAD: Normal with no signs of trauma. EYES: Pupils equal, round and reactive to light, extraocular movements intact, sclera anicteric, conjunctiva clear. No lid lag. EARS, NOSE, THROAT: Ears normal, nares patent, oropharynx clear without exudates. Moist mucous membranes. ABDOMEN: Soft, nontender, not distended, right sided abdominal healed surgical scar from nephrectomy removal. +tenderness of palpation of left flank MUSCULOSKELETAL: Normal range of motion at all joints. No bony deformities or tenderness. No CVA tenderness. UPPER EXTREMITIES: No peripheral edema. LOWER EXTREMITIES: No peripheral edema. NEUROLOGICAL: Normal speech. Normal gait. PSYCHIATRIC: Cooperative. Good eye contact. Appropriate mood and affect. SKIN: Warm, dry, normal turgor, no rashes or lesions noted, normal capillary refill. Laboratory Results - last 24 hr 12/12/18 12/13/18 12/13/18 17:11 06:00 06:00 WBC 6.7 RBC 4.76 Hgb 13.2 Hct 39.2 MCV 82.5 MCH 27.7 MCHC 33.6 RDW 14.4 Plt Count 269 MPV 8.5 Absolute Neuts (auto) 4.3 Neutrophils % 63.9 Lymphocytes % 26.2 Monocytes % 7.4 Eosinophils % 2.1 Basophils % 0.4 Nucleated RBC % 0 Sodium 141 Potassium 4.0 Chloride 109 H Carbon Dioxide 25 Anion Gap 6 L BUN 12 Creatinine 1.3 Creat Clearance w eGFR 59.43 POC Glucometer 98 Random Glucose 100 Calcium 8.4 L Total Bilirubin 0.4 AST 8 L ALT 16 Alkaline Phosphatase 75 Total Protein 6.8 Albumin 3.4 12/13/18 12/13/18 06:37 10:49 WBC RBC Hgb Hct MCV MCH MCHC RDW Plt Count MPV Absolute Neuts (auto) Neutrophils % Lymphocytes % Monocytes % Eosinophils % Basophils % Nucleated RBC % Sodium Potassium Chloride Carbon Dioxide Anion Gap BUN Creatinine Creat Clearance w eGFR POC Glucometer 103 116 Random Glucose Calcium Total Bilirubin AST ALT Alkaline Phosphatase Total Protein Albumin Active Medications Generic Name Dose Route Start Last Admin Trade Name Freq PRN Reason Stop Dose Admin Acetaminophen 650 mg 12/11/18 17:24 12/11/18 20:57 Tylenol - PO 650 mg Q6H PRN Administration PAIN LEVEL 4-6 Amlodipine Besylate 5 mg 12/12/18 10:00 12/13/18 08:59 Norvasc - PO 5 mg DAILY JOHN Administration Docusate Sodium 100 mg 12/13/18 14:00 Colace - PO TID JOHN Hydralazine HCl 25 mg 12/11/18 22:00 12/13/18 09:00 Apresoline - PO 25 mg BID JOHN Administration Meropenem 1 gm/ Dextrose 100 mls @ 200 mls/hr 12/12/18 11:15 12/13/18 09:06 IVPB 200 mls/hr Q8H-IV JOHN Administration Sodium Chloride 1,000 mls @ 100 mls/hr 12/12/18 11:12 12/12/18 12:11 Normal Saline - IV 100 mls/hr ASDIR JOHN Administration Insulin Aspart 1 vial 12/11/18 22:00 12/13/18 10:53 Novolog Vial Sliding Scale - SQ Not Given ACHS JOHN Protocol Ondansetron HCl 4 mg 12/12/18 14:56 12/12/18 15:50 Zofran - PO 4 mg Q6H PRN Administration NAUSEA AND/OR VOMITING Oxycodone HCl 5 mg 12/11/18 22:48 12/13/18 08:12 Roxicodone - PO 5 mg Q6H PRN Administration PAIN LEVEL 7 - 10 Paroxetine HCl 30 mg 12/12/18 10:00 12/13/18 09:00 Paxil - PO 30 mg DAILY JOHN Administration ASSESSMENT/PLAN: Patient is a 48 year old male with past medical history of right-sided nephrectomy in 2015 (done at with Dr. Miles) for recurrent kidney infections. His other past medical history includes hypertension and diabetes. He comes to the ED today for left flank pain that began about 1 week ago. Left flank pain got worse over the last day and accompanied with painful urination, left flank tenderness and nausea which prompted an ED visit. He tried Tylenol at home but without relief. He denies fevers, chills, diarrhea, constipation or chest pain. In the ED a CT scan was negative for hydronephrosis or stranding. An ultrasound sound was negative for acute findings. His UA shows WBC 9, +1 leuks , moderate bacteria with cloudy urine. In the ED he was given 750mg of Levaquin and started on IV hydration. Imaging: Abd Ct/spiral CT: s/p right nephrectomy without evidence of left sided urinary tract calculi, obstructive or acute pathology Renal ultrasound: normal left kidney, no hydro or acute pathology ------ right nephrectomy 2014 Hypertension Diabetes ----- Renal Left Pylonephritis Left flank pain, improving Imaging done here without acute pathology UA with signs of infection. Urine culture with ecoli Received surgical report of right nephrectomy. awaiting pathology report. On IVF 100/cc/hr PCN Allergy, ID following Creat 1.3 Card: Hypertension. controlled On Amlodopine and Hydralzeine Endocrine: Diabetes: On metformin at home fasting bgms controlled On Novolog with SS hold metformin until discharge a1c in a.m. Psyche: Substance abuse Patient admits to daily heavy use of marijuana Counseled on cessation fen NS @ 100cc/hr monitor electrolytes diabetic diet full code Visit type - Emergency Visit Emergency Visit: Yes ED Registration Date: 12/12/18 Care time: The patient presented to the Emergency Department on the above date and was hospitalized for further evaluation of their emergent condition. - New Patient This patient is new to me today: No - Critical Care Critical Care patient: No - Discharge Referral Referred to [facility] Med P.C.: No
[2018-12-13] MEDS ORDERED: BISACODYL 5 MG TABLET.DR (FP) PO ONE (13:17)
[2018-12-13] MEDS: DOCUSATE SODIUM 100 MG CAPSULE (FP) PO SCH ×2 (14:23→21:15)
[2018-12-13] MEDS: SODIUM CHLORIDE 1,000 ML IV SCH (14:35)
--- NOTE | 2018-12-13 15:02 | PN ---
Progress Note, Physician History of Present Illness: patient stable doing well no issues feeling better - Current Medication List Current Medications: Active Medications Acetaminophen (Tylenol -) 650 mg PO Q6H PRN PRN Reason: PAIN LEVEL 4-6 Last Admin: 12/11/18 20:57 Dose: 650 mg Amlodipine Besylate (Norvasc -) 5 mg PO DAILY [facility] Last Admin: 12/13/18 08:59 Dose: 5 mg Docusate Sodium (Colace -) 100 mg PO TID [facility] Last Admin: 12/13/18 14:23 Dose: 100 mg Hydralazine HCl (Apresoline -) 25 mg PO BID [facility] Last Admin: 12/13/18 09:00 Dose: 25 mg Meropenem 1 gm/ Dextrose 100 mls @ 200 mls/hr IVPB Q8H-IV [facility] Last Admin: 12/13/18 09:06 Dose: 200 mls/hr Sodium Chloride (Normal Saline -) 1,000 mls @ 100 mls/hr IV ASDIR [facility] Last Admin: 12/13/18 14:35 Dose: 100 mls/hr Insulin Aspart (Novolog Vial Sliding Scale -) 1 vial SQ ACHS [facility]; Protocol Last Admin: 12/13/18 10:53 Dose: Not Given Ondansetron HCl (Zofran -) 4 mg PO Q6H PRN PRN Reason: NAUSEA AND/OR VOMITING Last Admin: 12/12/18 15:50 Dose: 4 mg Oxycodone HCl (Roxicodone -) 5 mg PO Q6H PRN PRN Reason: PAIN LEVEL 7 - 10 Last Admin: 12/13/18 08:12 Dose: 5 mg Paroxetine HCl (Paxil -) 30 mg PO DAILY [facility] Last Admin: 12/13/18 09:00 Dose: 30 mg Senna (Senna -) 2 tab PO [facility] - Objective Vital Signs: Vital Signs Temperature 98.0 F 12/13/18 14:00 Pulse Rate 93 H 12/13/18 14:00 Respiratory Rate 21 H 12/13/18 14:00 Blood Pressure 147/91 12/13/18 14:00 O2 Sat by Pulse Oximetry (%) 95 12/13/18 09:00 Constitutional: Yes: No Distress, Calm Cardiovascular: Yes: Regular Rate and Rhythm Respiratory: Yes: Regular, CTA Bilaterally Gastrointestinal: Yes: Normal Bowel Sounds, Soft Musculoskeletal: Yes: WNL Extremities: Yes: WNL Neurological: Yes: Alert, Oriented Psychiatric: Yes: Alert, Oriented Labs: CBC, BMP 12/13/18 06:00 12/13/18 06:00 INR, PTT INR 0.99 (0.83-1.09) 12/11/18 11:44 Assessment/Plan 48 year old male with past medical history of right-sided nephrectomy in 2014 ( done at [facility] with Dr. Miles) for recurrent kidney infections. His other past medical history includes hypertension and diabetes. ------ right nephrectomy 2014 Hypertension Diabetes ----- Left Pylonephritis Left flank pain, improving Hypertension. controlled Diabetes Substance abuse plan patient to continue abx for now rest as per the team hydration stable
[2018-12-13] MEDS: SENNOSIDES 8.6MG TABLET (FP) PO SCH (21:15)
[2018-12-14] MEDS ORDERED: PT OWN MED DRAWER 7, Y5N ONE (01:06)
[2018-12-14] MEDS: MEROPENEM 1 GM in DEXTROSE 5%-WATER 100 ML IVPB SCH ×3 (03:47→17:25)
[2018-12-14] MEDS: INSULIN SLIDING SCALE (NOVOLOG) 1 VIAL SQ SCH ×4 (06:37→21:56)
[2018-12-14] MEDS: DOCUSATE SODIUM 100 MG CAPSULE (FP) PO SCH ×3 (06:39→21:56)
[2018-12-14 08:26] LABS: BASO % 0.4 % (0-2.0); EOS % 1.8 % (0-4.5); HEMATOCRIT 40.6 % (35.4-49); HEMOGLOBIN 13.4 GM/dL (11.7-16.9); LYMPH % 21.4 % (8-40); MCH 27.6 pg (25.7-33.7); MCHC 33.1 g/dl (32.0-35.9); MEAN CELL VOLUME 83.3 fl (80-96); MEAN PLT VOLUME 8.5 fl (7.5-11.1); MONO % 6.9 % (3.8-10.2); NEUT % 69.5 % (42.8-82.8); PLATELET COUNT 285 K/MM3 (134-434); RBC 4.87 M/mm3 (4.00-5.60); RDW 14.2 % (11.9-15.9); WHITE BLOOD COUNT 7.6 K/mm3 (4.0-10.0)
[2018-12-14 08:54] LABS: ALBUMIN 3.5 g/dl (3.4-5.0); ALK PHOS 75 U/L (45-117); ANION GAP 6 MMOL/L (8-16); BILIRUBIN,TOTAL 0.5 mg/dL (0.2-1); BLOOD UREA NITROGEN 11 mg/dL (7-18); CALCIUM 8.6 mg/dL (8.5-10.1); CHLORIDE 110 mmol/L (98-107); CO2 25 mmol/L (21-32); CREATININE 1.1 mg/dL (0.55-1.3); GLUCOSE,RANDOM 97 mg/dL (74-106); SGOT/AST 5 U/L (15-37); SGPT/ALT 16 U/L (13-61); SODIUM 140 mmol/L (136-145); TOT PROT 6.8 g/dl (6.4-8.2)
[2018-12-14] MEDS: hydrALAZINE HCL 25 MG TABLET (FP) PO SCH ×2 (09:09→21:55)
[2018-12-14] MEDS: PARoxetine HCL 20 MG TABLET (FP) PO SCH (09:09)
[2018-12-14] MEDS: amLODIPine BESYLATE 5 MG TABLET (FP) PO SCH (09:09)
[2018-12-14] MEDS: SODIUM CHLORIDE 1,000 ML IV SCH ×2 (09:11→23:40)
--- NOTE | 2018-12-14 12:03 | PN ---
Physical Exam: SUBJECTIVE: Patient seen and examined at the bedside. feels well, tells me he is feeling better. asking for a urology consult, b/c he wants one closer to home. OBJECTIVE: Vital Signs Period Temp Pulse Resp BP Sys/Ann Pulse Ox Last 24 Hr 98.0 F-98.6 F 80-93 18-21 131-152/83-97 94-95 GENERAL: Awake, alert, and fully oriented, in no acute distress. HEAD: Normal with no signs of trauma. EYES: Pupils equal, round and reactive to light, extraocular movements intact, sclera anicteric, conjunctiva clear. No lid lag. EARS, NOSE, THROAT: Ears normal, nares patent, oropharynx clear without exudates. Moist mucous membranes. ABDOMEN: Soft, nontender, not distended, right sided abdominal healed surgical scar from nephrectomy removal. +tenderness of palpation of left flank LUNGS: clear bilaterally MUSCULOSKELETAL: Normal range of motion at all joints. No bony deformities or tenderness. No CVA tenderness. UPPER EXTREMITIES: No peripheral edema. LOWER EXTREMITIES: No peripheral edema. NEUROLOGICAL: Normal speech. Normal gait. PSYCHIATRIC: Cooperative. Good eye contact. Appropriate mood and affect. SKIN: Warm, dry, normal turgor, no rashes or lesions noted, normal capillary refill. Laboratory Results - last 24 hr 12/13/18 12/13/18 12/14/18 16:03 21:14 06:32 WBC RBC Hgb Hct MCV MCH MCHC RDW Plt Count MPV Absolute Neuts (auto) Neutrophils % Lymphocytes % Monocytes % Eosinophils % Basophils % Nucleated RBC % Sodium Potassium Chloride Carbon Dioxide Anion Gap BUN Creatinine Creat Clearance w eGFR POC Glucometer 87 76 109 Random Glucose Hemoglobin A1c % Calcium Total Bilirubin AST ALT Alkaline Phosphatase Total Protein Albumin 12/14/18 12/14/18 12/14/18 08:00 08:00 08:00 WBC 7.6 RBC 4.87 Hgb 13.4 Hct 40.6 MCV 83.3 MCH 27.6 MCHC 33.1 RDW 14.2 Plt Count 285 MPV 8.5 Absolute Neuts (auto) 5.3 Neutrophils % 69.5 Lymphocytes % 21.4 Monocytes % 6.9 Eosinophils % 1.8 Basophils % 0.4 Nucleated RBC % 0 Sodium 140 Potassium 4.0 Chloride 110 H Carbon Dioxide 25 Anion Gap 6 L BUN 11 Creatinine 1.1 Creat Clearance w eGFR > 60 POC Glucometer Random Glucose 97 Hemoglobin A1c % 5.9 Calcium 8.6 Total Bilirubin 0.5 AST 5 L ALT 16 Alkaline Phosphatase 75 Total Protein 6.8 Albumin 3.5 12/14/18 11:09 WBC RBC Hgb Hct MCV MCH MCHC RDW Plt Count MPV Absolute Neuts (auto) Neutrophils % Lymphocytes % Monocytes % Eosinophils % Basophils % Nucleated RBC % Sodium Potassium Chloride Carbon Dioxide Anion Gap BUN Creatinine Creat Clearance w eGFR POC Glucometer 116 Random Glucose Hemoglobin A1c % Calcium Total Bilirubin AST ALT Alkaline Phosphatase Total Protein Albumin Active Medications Generic Name Dose Route Start Last Admin Trade Name Freq PRN Reason Stop Dose Admin Acetaminophen 650 mg 12/11/18 17:24 12/11/18 20:57 Tylenol - PO 650 mg Q6H PRN Administration PAIN LEVEL 4-6 Amlodipine Besylate 5 mg 12/12/18 10:00 12/14/18 09:09 Norvasc - PO 5 mg DAILY JOHN Administration Docusate Sodium 100 mg 12/13/18 14:00 12/14/18 06:39 Colace - PO 100 mg TID JOHN Administration Hydralazine HCl 25 mg 12/11/18 22:00 12/14/18 09:09 Apresoline - PO 25 mg BID JOHN Administration Meropenem 1 gm/ Dextrose 100 mls @ 200 mls/hr 12/12/18 11:15 12/14/18 09:09 IVPB 200 mls/hr Q8H-IV JOHN Administration Sodium Chloride 1,000 mls @ 100 mls/hr 12/12/18 11:12 12/14/18 09:11 Normal Saline - IV 100 mls/hr ASDIR JOHN Administration Insulin Aspart 1 vial 12/11/18 22:00 12/14/18 11:11 Novolog Vial Sliding Scale - SQ Not Given ACHS JOHN Protocol Ondansetron HCl 4 mg 12/12/18 14:56 12/12/18 15:50 Zofran - PO 4 mg Q6H PRN Administration NAUSEA AND/OR VOMITING Oxycodone HCl 5 mg 12/11/18 22:48 12/13/18 21:15 Roxicodone - PO 5 mg Q6H PRN Administration PAIN LEVEL 7 - 10 Paroxetine HCl 30 mg 12/12/18 10:00 12/14/18 09:09 Paxil - PO 30 mg DAILY JOHN Administration Senna 2 tab 12/13/18 22:00 12/13/18 21:15 Senna - PO 2 tab HS JOHN Administration ASSESSMENT/PLAN: Patient is a 48 year old male with past medical history of right-sided nephrectomy in 2014 (done at [facility] with Dr. Miles) for recurrent kidney infections. His other past medical history includes hypertension and diabetes. He comes to the ED today for left flank pain that began about 1 week ago. Left flank pain got worse over the last day and accompanied with painful urination, left flank tenderness and nausea which prompted an ED visit. He tried Tylenol at home but without relief. He denies fevers, chills, diarrhea, constipation or chest pain. In the ED a CT scan was negative for hydronephrosis or stranding. An ultrasound sound was negative for acute findings. His UA shows WBC 9, +1 leuks , moderate bacteria with cloudy urine. In the ED he was given 750mg of Levaquin and started on IV hydration. Imaging: Abd Ct/spiral CT: s/p right nephrectomy without evidence of left sided urinary tract calculi, obstructive or acute pathology Renal ultrasound: normal left kidney, no hydro or acute pathology ------ right nephrectomy 2014 Hypertension Diabetes, diagnosed 10 years ago ----- Renal Left Pylonephritis Left flank pain, improving Imaging done here without acute pathology UA with signs of infection. Urine culture with ecoli, resistent to levoflaxacin Received surgical report of right nephrectomy. awaiting pathology report, has been requested On IVF 100/cc/hr PCN Allergy, on meropenem Creat 1.1 Card: Hypertension. controlled On Amlodopine and Hydralzeine Endocrine: Diabetes: On metformin at home, was diagnosed with diabetes 10 years ago and had an elevated hmga1c then. now hmga1c 5.9. Patient to follow up with PCP for further recommendations on metformin dosage (reduce or keep same) fasting bgms controlled On Novolog with SS hold metformin until discharge a1c 5.9 Psyche: Substance abuse Patient admits to daily heavy use of marijuana Counseled on cessation fen NS @ 100cc/hr monitor electrolytes diabetic diet full code Visit type - Emergency Visit Emergency Visit: Yes ED Registration Date: 12/12/18 Care time: The patient presented to the Emergency Department on the above date and was hospitalized for further evaluation of their emergent condition. - New Patient This patient is new to me today: No - Critical Care Critical Care patient: No - Discharge Referral Referred to [facility] No
--- NOTE | 2018-12-14 14:06 | PN ---
Progress Note, Physician History of Present Illness: starting to feel better no complaints - Current Medication List Current Medications: Active Medications Acetaminophen (Tylenol -) 650 mg PO Q6H PRN PRN Reason: PAIN LEVEL 4-6 Last Admin: 12/11/18 20:57 Dose: 650 mg Amlodipine Besylate (Norvasc -) 5 mg PO DAILY [facility] Last Admin: 12/14/18 09:09 Dose: 5 mg Docusate Sodium (Colace -) 100 mg PO TID [facility] Last Admin: 12/14/18 06:39 Dose: 100 mg Hydralazine HCl (Apresoline -) 25 mg PO BID [facility] Last Admin: 12/14/18 09:09 Dose: 25 mg Meropenem 1 gm/ Dextrose 100 mls @ 200 mls/hr IVPB Q8H-IV [facility] Last Admin: 12/14/18 09:09 Dose: 200 mls/hr Sodium Chloride (Normal Saline -) 1,000 mls @ 100 mls/hr IV ASDIR [facility] Last Admin: 12/14/18 09:11 Dose: 100 mls/hr Insulin Aspart (Novolog Vial Sliding Scale -) 1 vial SQ ACHS [facility]; Protocol Last Admin: 12/14/18 11:11 Dose: Not Given Ondansetron HCl (Zofran -) 4 mg PO Q6H PRN PRN Reason: NAUSEA AND/OR VOMITING Last Admin: 12/12/18 15:50 Dose: 4 mg Oxycodone HCl (Roxicodone -) 5 mg PO Q6H PRN PRN Reason: PAIN LEVEL 7 - 10 Last Admin: 12/13/18 21:15 Dose: 5 mg Paroxetine HCl (Paxil -) 30 mg PO DAILY [facility] Last Admin: 12/14/18 09:09 Dose: 30 mg Senna (Senna -) 2 tab PO HS [facility] Last Admin: 12/13/18 21:15 Dose: 2 tab - Objective Vital Signs: Vital Signs Temperature 98.6 F 12/14/18 09:00 Pulse Rate 87 12/14/18 09:00 Respiratory Rate 20 12/14/18 09:00 Blood Pressure 131/83 12/14/18 09:00 O2 Sat by Pulse Oximetry (%) 94 L 12/14/18 08:56 Constitutional: Yes: No Distress, Calm Cardiovascular: Yes: Regular Rate and Rhythm Respiratory: Yes: Regular, CTA Bilaterally Gastrointestinal: Yes: Normal Bowel Sounds, Soft Musculoskeletal: Yes: WNL Extremities: Yes: WNL Neurological: Yes: Alert, Oriented Psychiatric: Yes: Alert, Oriented Labs: CBC, BMP 12/14/18 08:00 12/14/18 08:00 INR, PTT INR 0.99 (0.83-1.09) 12/11/18 11:44 Assessment/Plan 48 year old male with past medical history of right-sided nephrectomy in 2014 ( done at [facility] with Dr. Miles) for recurrent kidney infections. His other past medical history includes hypertension and diabetes. ------ right nephrectomy 2014 Hypertension Diabetes ----- Left Pylonephritis Left flank pain, improving Hypertension. controlled Diabetes Substance abuse plan patient to continue abx for now rest as per the team hydration stable
[2018-12-14] MEDS ORDERED: INSULIN (NOVOLOG) ASPART 100 UNITS/ML 10ML VIAL ONE (21:10)
[2018-12-14] MEDS: SENNOSIDES 8.6MG TABLET (FP) PO SCH (21:56)
[2018-12-15] MEDS ORDERED: PT OWN MED DRAWER 7, Y5N ONE ×3 (01:29→17:19)
[2018-12-15] MEDS: MEROPENEM 1 GM in DEXTROSE 5%-WATER 100 ML IVPB SCH ×3 (01:33→17:24)
[2018-12-15] MEDS ORDERED: INSULIN (NOVOLOG) ASPART 100 UNITS/ML 10ML VIAL ONE ×2 (06:16→20:59)
[2018-12-15] MEDS: DOCUSATE SODIUM 100 MG CAPSULE (FP) PO SCH ×3 (06:21→21:49)
[2018-12-15] MEDS: INSULIN SLIDING SCALE (NOVOLOG) 1 VIAL SQ SCH ×4 (06:21→21:51)
[2018-12-15 07:52] LABS: BASO % 0.5 % (0-2.0); EOS % 2.5 % (0-4.5); HEMATOCRIT 40.8 % (35.4-49); HEMOGLOBIN 13.8 GM/dL (11.7-16.9); LYMPH % 26.7 % (8-40); MCH 28.3 pg (25.7-33.7); MCHC 33.8 g/dl (32.0-35.9); MEAN CELL VOLUME 83.7 fl (80-96); MEAN PLT VOLUME 8.7 fl (7.5-11.1); MONO % 8.3 % (3.8-10.2); PLATELET COUNT 277 K/MM3 (134-434); RBC 4.88 M/mm3 (4.00-5.60); RDW 14.6 % (11.9-15.9); WHITE BLOOD COUNT 7.5 K/mm3 (4.0-10.0)
[2018-12-15 08:19] LABS: ALBUMIN 3.4 g/dl (3.4-5.0); ALK PHOS 73 U/L (45-117); ANION GAP 6 MMOL/L (8-16); BILIRUBIN,TOTAL 0.4 mg/dL (0.2-1); BLOOD UREA NITROGEN 11 mg/dL (7-18); CALCIUM 8.6 mg/dL (8.5-10.1); CHLORIDE 110 mmol/L (98-107); CO2 26 mmol/L (21-32); CREATININE 1.1 mg/dL (0.55-1.3); GLUCOSE,RANDOM 101 mg/dL (74-106); POTASSIUM 3.9 mmol/L (3.5-5.1); SGOT/AST 7 U/L (15-37); SGPT/ALT 15 U/L (13-61); SODIUM 142 mmol/L (136-145); TOT PROT 6.8 g/dl (6.4-8.2)
[2018-12-15] MEDS: PARoxetine HCL 20 MG TABLET (FP) PO SCH (09:01)
[2018-12-15] MEDS: amLODIPine BESYLATE 5 MG TABLET (FP) PO SCH (09:01)
[2018-12-15] MEDS: hydrALAZINE HCL 25 MG TABLET (FP) PO SCH ×2 (09:02→21:49)
--- NOTE | 2018-12-15 10:20 | PN ---
Progress Note (short form) - Note Progress Note: Renal follow up for CKD and flank pain Pt seen and examined at the bedside awake and alert no acute complaints feels much better no sob, cp, abd pain, N/V/D Vital Signs Temperature 98.2 F 12/15/18 08:35 Pulse Rate 82 12/15/18 08:35 Respiratory Rate 18 12/15/18 08:35 Blood Pressure 135/92 12/15/18 08:35 O2 Sat by Pulse Oximetry (%) 97 12/14/18 21:00 NAD RRR CTA soft NT/ND + CVA tenderness no Le edema, clubbing or cyanosis CBC, BMP 12/15/18 07:00 12/15/18 07:00 Current Medications Acetaminophen (Tylenol -) 650 mg PO Q6H PRN PRN Reason: PAIN LEVEL 4-6 Last Admin: 12/11/18 20:57 Dose: 650 mg Amlodipine Besylate (Norvasc -) 5 mg PO DAILY [facility] Last Admin: 12/15/18 09:01 Dose: 5 mg Docusate Sodium (Colace -) 100 mg PO TID [facility] Last Admin: 12/15/18 06:21 Dose: 100 mg Hydralazine HCl (Apresoline -) 25 mg PO BID [facility] Last Admin: 12/15/18 09:02 Dose: 25 mg Meropenem 1 gm/ Dextrose 100 mls @ 200 mls/hr IVPB Q8H-IV [facility] Last Admin: 12/15/18 09:00 Dose: 200 mls/hr Sodium Chloride (Normal Saline -) 1,000 mls @ 100 mls/hr IV ASDIR [facility] Last Admin: 12/14/18 23:40 Dose: 100 mls/hr Insulin Aspart (Novolog Vial Sliding Scale -) 1 vial SQ ACHS [facility]; Protocol Last Admin: 12/15/18 06:21 Dose: Not Given Ondansetron HCl (Zofran -) 4 mg PO Q6H PRN PRN Reason: NAUSEA AND/OR VOMITING Last Admin: 12/12/18 15:50 Dose: 4 mg Oxycodone HCl (Roxicodone -) 5 mg PO Q6H PRN PRN Reason: PAIN LEVEL 7 - 10 Last Admin: 12/13/18 21:15 Dose: 5 mg Paroxetine HCl (Paxil -) 30 mg PO DAILY [facility] Last Admin: 12/15/18 09:01 Dose: 30 mg Senna (Senna -) 2 tab PO HS JOHN Last Admin: 12/14/18 21:56 Dose: 2 tab 48 year old gentleman with history of 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 #Suspected Pylonephritis #CKD with hx of right nephrectomy #Recurrent infections #Hypertension Renal function improved and stable can d/c IVF continue Abx as per ID Urology consult pending Jerome Arzate DO
--- NOTE | 2018-12-15 11:07 | PN ---
Progress Note, Physician History of Present Illness: stable no new issues feels much better - Current Medication List Current Medications: Active Medications Acetaminophen (Tylenol -) 650 mg PO Q6H PRN PRN Reason: PAIN LEVEL 4-6 Last Admin: 12/11/18 20:57 Dose: 650 mg Amlodipine Besylate (Norvasc -) 5 mg PO DAILY [facility] Last Admin: 12/15/18 09:01 Dose: 5 mg Docusate Sodium (Colace -) 100 mg PO TID [facility] Last Admin: 12/15/18 06:21 Dose: 100 mg Hydralazine HCl (Apresoline -) 25 mg PO BID [facility] Last Admin: 12/15/18 09:02 Dose: 25 mg Meropenem 1 gm/ Dextrose 100 mls @ 200 mls/hr IVPB Q8H-IV [facility] Last Admin: 12/15/18 09:00 Dose: 200 mls/hr Sodium Chloride (Normal Saline -) 1,000 mls @ 100 mls/hr IV ASDIR [facility] Last Admin: 12/14/18 23:40 Dose: 100 mls/hr Insulin Aspart (Novolog Vial Sliding Scale -) 1 vial SQ ACHS [facility]; Protocol Last Admin: 12/15/18 06:21 Dose: Not Given Ondansetron HCl (Zofran -) 4 mg PO Q6H PRN PRN Reason: NAUSEA AND/OR VOMITING Last Admin: 12/12/18 15:50 Dose: 4 mg Oxycodone HCl (Roxicodone -) 5 mg PO Q6H PRN PRN Reason: PAIN LEVEL 7 - 10 Last Admin: 12/13/18 21:15 Dose: 5 mg Paroxetine HCl (Paxil -) 30 mg PO DAILY [facility] Last Admin: 12/15/18 09:01 Dose: 30 mg Senna (Senna -) 2 tab PO HS [facility] Last Admin: 12/14/18 21:56 Dose: 2 tab - Objective Vital Signs: Vital Signs Temperature 98.2 F 12/15/18 08:35 Pulse Rate 82 12/15/18 08:35 Respiratory Rate 18 12/15/18 08:35 Blood Pressure 135/92 12/15/18 08:35 O2 Sat by Pulse Oximetry (%) 97 12/15/18 09:00 Constitutional: Yes: No Distress, Calm Cardiovascular: Yes: Regular Rate and Rhythm Respiratory: Yes: Regular, CTA Bilaterally Gastrointestinal: Yes: Normal Bowel Sounds, Soft Musculoskeletal: Yes: WNL Extremities: Yes: WNL Neurological: Yes: Alert, Oriented Psychiatric: Yes: Alert, Oriented Labs: CBC, BMP 12/15/18 07:00 12/15/18 07:00 INR, PTT INR 0.99 (0.83-1.09) 12/11/18 11:44 Assessment/Plan 48 year old male with past medical history of right-sided nephrectomy in 2014 ( done at [facility] with Dr. Miles) for recurrent kidney infections. His other past medical history includes hypertension and diabetes. ------ right nephrectomy 2014 Hypertension Diabetes ----- Left Pylonephritis Left flank pain, improving Hypertension. controlled Diabetes Substance abuse plan continue abx will d/w the team rest as per th eteam patient stable
[2018-12-15] MEDS: SODIUM CHLORIDE 1,000 ML IV SCH ×2 (12:06→12:07)
--- NOTE | 2018-12-15 13:38 | PN ---
Physical Exam: SUBJECTIVE: Patient seen and examined OBJECTIVE: discharge planning - return back to work note written for patient. return to work Saturday (on d/c instructions) - pt requesting new pcp referral. referrals in packet. His pcp is Dr. Nair in [facility], but patient wants one closer to home as he recently moved to [place]. - urology consult pending Vital Signs Period Temp Pulse Resp BP Sys/Ann Pulse Ox Last 24 Hr 98.2 F-98.8 F 82-94 18-20 135-142/75-92 97-97 GENERAL: Awake, alert, and fully oriented, in no acute distress. HEAD: Normal with no signs of trauma. EYES: Pupils equal, round and reactive to light, extraocular movements intact, sclera anicteric, conjunctiva clear. No lid lag. EARS, NOSE, THROAT: Ears normal, nares patent, oropharynx clear without exudates. Moist mucous membranes. ABDOMEN: Soft, nontender, not distended, right sided abdominal healed surgical scar from nephrectomy removal. LUNGS: clear bilaterally MUSCULOSKELETAL: Normal range of motion at all joints. No bony deformities or tenderness. No CVA tenderness. UPPER EXTREMITIES: No peripheral edema. LOWER EXTREMITIES: No peripheral edema. NEUROLOGICAL: Normal speech. Normal gait. PSYCHIATRIC: Cooperative. Good eye contact. Appropriate mood and affect. SKIN: Warm, dry, normal turgor, no rashes or lesions noted, normal capillary refill. Laboratory Results - last 24 hr 12/12/18 12/14/18 12/14/18 22:03 16:00 21:55 WBC RBC Hgb Hct MCV MCH MCHC RDW Plt Count MPV Absolute Neuts (auto) Neutrophils % Lymphocytes % Monocytes % Eosinophils % Basophils % Nucleated RBC % Sodium Potassium Chloride Carbon Dioxide Anion Gap BUN Creatinine Creat Clearance w eGFR POC Glucometer 93 130 95 Random Glucose Calcium Total Bilirubin AST ALT Alkaline Phosphatase Total Protein Albumin 12/15/18 12/15/18 12/15/18 06:20 07:00 07:00 WBC 7.5 RBC 4.88 Hgb 13.8 Hct 40.8 MCV 83.7 MCH 28.3 MCHC 33.8 RDW 14.6 Plt Count 277 MPV 8.7 Absolute Neuts (auto) 4.6 Neutrophils % 62.0 Lymphocytes % 26.7 D Monocytes % 8.3 Eosinophils % 2.5 Basophils % 0.5 Nucleated RBC % 0 Sodium 142 Potassium 3.9 Chloride 110 H Carbon Dioxide 26 Anion Gap 6 L BUN 11 Creatinine 1.1 Creat Clearance w eGFR > 60 POC Glucometer 110 Random Glucose 101 Calcium 8.6 Total Bilirubin 0.4 AST 7 L ALT 15 Alkaline Phosphatase 73 Total Protein 6.8 Albumin 3.4 12/15/18 11:29 WBC RBC Hgb Hct MCV MCH MCHC RDW Plt Count MPV Absolute Neuts (auto) Neutrophils % Lymphocytes % Monocytes % Eosinophils % Basophils % Nucleated RBC % Sodium Potassium Chloride Carbon Dioxide Anion Gap BUN Creatinine Creat Clearance w eGFR POC Glucometer 91 Random Glucose Calcium Total Bilirubin AST ALT Alkaline Phosphatase Total Protein Albumin Active Medications Generic Name Dose Route Start Last Admin Trade Name Freq PRN Reason Stop Dose Admin Acetaminophen 650 mg 12/11/18 17:24 12/11/18 20:57 Tylenol - PO 650 mg Q6H PRN Administration PAIN LEVEL 4-6 Amlodipine Besylate 5 mg 12/12/18 10:00 12/15/18 09:01 Norvasc - PO 5 mg DAILY JOHN Administration Docusate Sodium 100 mg 12/13/18 14:00 12/15/18 06:21 Colace - PO 100 mg TID JOHN Administration Hydralazine HCl 25 mg 12/11/18 22:00 12/15/18 09:02 Apresoline - PO 25 mg BID JOHN Administration Meropenem 1 gm/ Dextrose 100 mls @ 200 mls/hr 12/12/18 11:15 12/15/18 09:00 IVPB 200 mls/hr Q8H-IV JOHN Administration Insulin Aspart 1 vial 12/11/18 22:00 12/15/18 11:43 Novolog Vial Sliding Scale - SQ Not Given ACHS [facility] Protocol Ondansetron HCl 4 mg 12/12/18 14:56 12/12/18 15:50 Zofran - PO 4 mg Q6H PRN Administration NAUSEA AND/OR VOMITING Oxycodone HCl 5 mg 12/11/18 22:48 12/13/18 21:15 Roxicodone - PO 5 mg Q6H PRN Administration PAIN LEVEL 7 - 10 Paroxetine HCl 30 mg 12/12/18 10:00 12/15/18 09:01 Paxil - PO 30 mg DAILY JOHN Administration Senna 2 tab 12/13/18 22:00 12/14/18 21:56 Senna - PO 2 tab HS JOHN Administration ASSESSMENT/PLAN: Patient is a 48 year old male with past medical history of right-sided nephrectomy in 2014 (done at [facility] with Dr. Miles) for recurrent kidney infections. His other past medical history includes hypertension and diabetes. He comes to the ED for left flank pain that began about 1 week ago. Left flank pain worsen accompanied with painful urination, left flank tenderness and nausea which prompted an ED visit. In the ED a CT scan was negative for hydronephrosis or stranding. An ultrasound sound was negative for acute findings. His UA shows WBC 9, +1 leuks , moderate bacteria with cloudy urine. In the ED he was given 750mg of Levaquin and started on IV hydration. Imaging: Abd Ct/spiral CT: s/p right nephrectomy without evidence of left sided urinary tract calculi, obstructive or acute pathology Renal ultrasound: normal left kidney, no hydro or acute pathology ------ right nephrectomy 2014 Hypertension Diabetes, diagnosed 10 years ago ----- Renal Left Pylonephritis Left flank pain resolved. Imaging done here without acute pathology Urine culture with ecoli, resistent to levoflaxacin. started on meropenem (has pcn allergy) Received surgical report of right nephrectomy (in chart to be scanned into [facility]). awaiting pathology report, has been requested Creat 1.1 Card: Hypertension. controlled On Amlodopine and Hydralzeine Endocrine: Diabetes: On metformin at home, was diagnosed with diabetes 10 years ago and had an elevated hmga1c then. now hmga1c 5.9. Patient to follow up with PCP for further recommendations on metformin dosage (reduce or keep same) fasting bgms controlled, will reduce bgms to BID testing. On Novolog with SS hold metformin until discharge Psyche: Substance abuse Patient admits to daily heavy use of marijuana Counseled on cessation fen tolerating PO monitor electrolytes diabetic diet full code Visit type - Emergency Visit Emergency Visit: Yes ED Registration Date: 12/12/18 Care time: The patient presented to the Emergency Department on the above date and was hospitalized for further evaluation of their emergent condition. - New Patient This patient is new to me today: No - Critical Care Critical Care patient: No - Discharge Referral Referred to [facility] No
[2018-12-15] MEDS: SENNOSIDES 8.6MG TABLET (FP) PO SCH (21:49)
[2018-12-16] MEDS ORDERED: PT OWN MED DRAWER 7, Y5N ONE (02:16)
[2018-12-16] MEDS: MEROPENEM 1 GM in DEXTROSE 5%-WATER 100 ML IVPB SCH ×2 (02:19→09:12)
[2018-12-16] MEDS ORDERED: INSULIN (NOVOLOG) ASPART 100 UNITS/ML 10ML VIAL ONE ×2 (05:52→11:11)
[2018-12-16] MEDS: DOCUSATE SODIUM 100 MG CAPSULE (FP) PO SCH ×2 (06:22→14:02)
[2018-12-16] MEDS: INSULIN SLIDING SCALE (NOVOLOG) 1 VIAL SQ SCH ×2 (06:23→11:21)
--- NOTE | 2018-12-16 08:33 | DS ---
Physical Examination Vital Signs: Vital Signs Temperature 97.6 F 12/16/18 05:39 Pulse Rate 82 12/16/18 05:39 Respiratory Rate 20 12/16/18 05:39 Blood Pressure 115/75 12/16/18 05:39 O2 Sat by Pulse Oximetry (%) 97 12/15/18 23:56 Constitutional: Yes: Well Nourished, No Distress, Calm Eyes: Yes: Conjunctiva Clear, EOM Intact HENT: Yes: Normocephalic Neck: Yes: Supple, Trachea Midline Cardiovascular: Yes: Regular Rate and Rhythm Respiratory: Yes: Regular, CTA Bilaterally Gastrointestinal: Yes: Normal Bowel Sounds, Soft ...Rectal Exam: Yes: Deferred Renal/: Yes: CVA Tenderness - Left Musculoskeletal: Yes: WNL Extremities: Yes: WNL Edema: No Peripheral Pulses WNL: Yes Peripheral Pulses: Left Radial: 2+, Right Radial: 2+, Left Doralis Pedis: 2+, Right Dorsalis Pedis: 2+ Integumentary: Yes: WNL, Tattoos Neurological: Yes: Alert, Oriented, Cran Nerves II-XII Intact ...Motor Strength: WNL Psychiatric: Yes: Alert, Oriented Labs: CBC, BMP 12/15/18 07:00 12/15/18 07:00 Discharge Summary Reason For Visit: ACUTE PYELONEPHRITIS Current Active Problems Acute pyelonephritis (Acute) Procedures: Principal: Renal stone CT 12-11-2018. s/p right nephrectomy with no evidence of left-sided urinary tract calculi, obstructive uropathy or acut pathology with the abdomen of pelvis. renal Sono 12/11/2018: Impression: morphologically normal left kidney with no evidence of hydronephrosis or acute pathology. Hospital Course: 48 year old male with past medical history of right-sided nephrectomy in 2014 ( done at [facility] with Dr. Miles) for recurrent kidney infections. His other past medical history includes hypertension and diabetes. He comes to the ED today for left flank pain that began about 1 week ago. Left flank pain got worse over the last day and accompained with painful urination, left flank tenderness and nausea which prompted an ED visit. He tried Tylenol at home but without relief. He denies fevers, chills, diarrhea, constipation or chest pain. Abd Ct/spiral CT: s/p right nephrectomy without evidence of left sided urinary tract calculi, obstructive or acute pathology Renal ultrasound: normal left kidney, no hydro or acute pathology. In the ED he was given 750mg of Levaquin and started on IV hydration. On day #4 , meropenem converted to levaquin and patient discharged home. You have been told you have a kidney infection. This is called pyelonephritis. The infection can be serious. It can damage your kidneys and cause bacteria to enter your bloodstream. You were treated in the hospital. Once you return home, heres what you can do at home to aid in your recovery and prevent future infections. Home care Take all the medicine you were prescribed, even if you feel better. Not finishing the medicine can make the infection come back. It may also make a future infection harder to treat. Unless told not to by your healthcare provider, drink 8 to 12 glasses of fluid every day. Clear fluids, such as water, are best. This may help flush the infection from your system. Preventing future infection Keep your genital area clean. Use mild soap. Rinse with water. If you are a woman, always wipe the genital area from front to back. Urinate frequently. Avoid holding urine in the bladder for a long time. Always urinate after sexual intercourse. Follow-up care Follow up with your healthcare provider, or as advised. And see your healthcare provider for regular lab tests as directed. When to call your healthcare provider Call your healthcare provider right away if you have any of the following: Decreased urine output or trouble urinating Severe pain in the lower back or flank Fever of 100.4F (38C) or higher, or as directed by your healthcare provider Shaking chills Vomiting Blood in your urine Dark-colored or foul-smelling urine Nausea or other problems that prevent you from taking your prescribed medicine Condition: Good - Instructions Diet, Activity, Other Instructions: PLEASE CALL THE OFFICE OF DR. JEROME OWENS ([employer]) FOR AN APPOINTMENT [phone] [place] [address], [id number] Referrals: Yuridia Yanes MD [Provisional Medical Staff] - (call for an appt, new pcp) Jose Luis Perez MD [Staff Physician] - (call for an appt, new pcp) Gil Narayanan MD [Staff Physician] - Jerome Owens MD [Staff Physician] - 2 Weeks Disposition: HOME - Home Medications Comprehensive Discharge Medication List: Ambulatory Orders Amlodipine Besylate [Norvasc -] 5 mg PO DAILY 12/11/18 Hydralazine HCl 25 mg PO BID 12/11/18 Paroxetine HCl [Paxil] 30 mg PO DAILY 12/11/18 This patient is new to me today: Yes Date on this admission: 12/16/18 Emergency Visit: Yes ED Registration Date: 12/12/18 Care time: The patient presented to the Emergency Department on the above date and was hospitalized for further evaluation of their emergent condition. Critical Care patient: No - Discharge Referral Referred to [facility] No Physician Referral: Fritz Gonzalez MD ([facility]) (please schedule appointment with Family medicine provider)
[2018-12-16] MEDS: amLODIPine BESYLATE 5 MG TABLET (FP) PO SCH (09:11)
[2018-12-16] MEDS: PARoxetine HCL 20 MG TABLET (FP) PO SCH (09:11)
[2018-12-16] MEDS: hydrALAZINE HCL 25 MG TABLET (FP) PO SCH (09:12)
[2018-12-16 11:05] LABS: BASO % 0.6 % (0-2.0); EOS % 1.6 % (0-4.5); HEMATOCRIT 44.9 % (35.4-49); HEMOGLOBIN 14.7 GM/dL (11.7-16.9); LYMPH % 22.8 % (8-40); MCH 27.3 pg (25.7-33.7); MCHC 32.8 g/dl (32.0-35.9); MEAN CELL VOLUME 83.3 fl (80-96); MEAN PLT VOLUME 8.9 fl (7.5-11.1); MONO % 7.7 % (3.8-10.2); NEUT % 67.3 % (42.8-82.8); PLATELET COUNT 317 K/MM3 (134-434); RBC 5.39 M/mm3 (4.00-5.60); RDW 14.5 % (11.9-15.9); WHITE BLOOD COUNT 8.6 K/mm3 (4.0-10.0)
[2018-12-16 11:32] LABS: ALK PHOS 85 U/L (45-117); ANION GAP 5 MMOL/L (8-16); BILIRUBIN,TOTAL 0.4 mg/dL (0.2-1); BLOOD UREA NITROGEN 15 mg/dL (7-18); CALCIUM 9.4 mg/dL (8.5-10.1); CHLORIDE 107 mmol/L (98-107); CO2 25 mmol/L (21-32); CREATININE 1.1 mg/dL (0.55-1.3); GLUCOSE,RANDOM 106 mg/dL (74-106); MAGNESIUM 2.3 mg/dL (1.8-2.4); POTASSIUM 4.2 mmol/L (3.5-5.1); SGOT/AST 12 U/L (15-37); SGPT/ALT 20 U/L (13-61); SODIUM 137 mmol/L (136-145); TOT PROT 8.1 g/dl (6.4-8.2)
--- NOTE | 2018-12-16 11:50 | PN ---
Progress Note (short form) - Note Progress Note: Renal follow up for CKD and flank pain Pt seen and examined at the bedside awake and alert no acute complaints Vital Signs Temperature 98.2 F 12/16/18 09:00 Pulse Rate 84 12/16/18 09:00 Respiratory Rate 20 12/16/18 09:00 Blood Pressure 133/84 12/16/18 09:00 O2 Sat by Pulse Oximetry (%) 95 12/16/18 08:33 NAD RRR CTA soft NT/ND no Le edema, clubbing or cyanosis CBC, BMP 12/16/18 10:30 12/16/18 10:30 Acetaminophen (Tylenol -) 650 mg PO Q6H PRN PRN Reason: PAIN LEVEL 4-6 Last Admin: 12/11/18 20:57 Dose: 650 mg Amlodipine Besylate (Norvasc -) 5 mg PO DAILY [facility] Last Admin: 12/15/18 09:01 Dose: 5 mg Docusate Sodium (Colace -) 100 mg PO TID [facility] Last Admin: 12/15/18 06:21 Dose: 100 mg Hydralazine HCl (Apresoline -) 25 mg PO BID [facility] Last Admin: 12/15/18 09:02 Dose: 25 mg Meropenem 1 gm/ Dextrose 100 mls @ 200 mls/hr IVPB Q8H-IV [facility] Last Admin: 12/15/18 09:00 Dose: 200 mls/hr Sodium Chloride (Normal Saline -) 1,000 mls @ 100 mls/hr IV ASDIR [facility] Last Admin: 12/14/18 23:40 Dose: 100 mls/hr Insulin Aspart (Novolog Vial Sliding Scale -) 1 vial SQ ACHS [facility]; Protocol Last Admin: 12/15/18 06:21 Dose: Not Given Ondansetron HCl (Zofran -) 4 mg PO Q6H PRN PRN Reason: NAUSEA AND/OR VOMITING Last Admin: 12/12/18 15:50 Dose: 4 mg Oxycodone HCl (Roxicodone -) 5 mg PO Q6H PRN PRN Reason: PAIN LEVEL 7 - 10 Last Admin: 12/13/18 21:15 Dose: 5 mg Paroxetine HCl (Paxil -) 30 mg PO DAILY [facility] Last Admin: 12/15/18 09:01 Dose: 30 mg Senna (Senna -) 2 tab PO HS [facility] Last Admin: 12/14/18 21:56 Dose: 2 tab 48 year old gentleman with history of 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 #Suspected Pylonephritis #CKD with hx of right nephrectomy #Recurrent infections #Hypertension Renal function improved and stable stable for discharge with outpatient follow up to be on oral abx as per ID urology consultation as an outpatient Jerome Arzate DO
--- NOTE | 2018-12-16 13:05 | PN ---
Progress Note, Physician History of Present Illness: patient dong well no issues pain resolved - Current Medication List Current Medications: Active Medications Acetaminophen (Tylenol -) 650 mg PO Q6H PRN PRN Reason: PAIN LEVEL 4-6 Last Admin: 12/11/18 20:57 Dose: 650 mg Amlodipine Besylate (Norvasc -) 5 mg PO DAILY [facility] Last Admin: 12/16/18 09:11 Dose: 5 mg Docusate Sodium (Colace -) 100 mg PO TID [facility] Last Admin: 12/16/18 06:22 Dose: Not Given Hydralazine HCl (Apresoline -) 25 mg PO BID [facility] Last Admin: 12/16/18 09:12 Dose: 25 mg Meropenem 1 gm/ Dextrose 100 mls @ 200 mls/hr IVPB Q8H-IV [facility] Last Admin: 12/16/18 09:12 Dose: 200 mls/hr Insulin Aspart (Novolog Vial Sliding Scale -) 1 vial SQ ACHS [facility]; Protocol Last Admin: 12/16/18 11:21 Dose: Not Given Ondansetron HCl (Zofran -) 4 mg PO Q6H PRN PRN Reason: NAUSEA AND/OR VOMITING Last Admin: 12/12/18 15:50 Dose: 4 mg Oxycodone HCl (Roxicodone -) 5 mg PO Q6H PRN PRN Reason: PAIN LEVEL 7 - 10 Last Admin: 12/13/18 21:15 Dose: 5 mg Paroxetine HCl (Paxil -) 30 mg PO DAILY [facility] Last Admin: 12/16/18 09:11 Dose: 30 mg Senna (Senna -) 2 tab PO HS [facility] Last Admin: 12/15/18 21:49 Dose: 2 tab - Objective Vital Signs: Vital Signs Temperature 98.2 F 12/16/18 09:00 Pulse Rate 84 12/16/18 09:00 Respiratory Rate 20 12/16/18 09:00 Blood Pressure 133/84 12/16/18 09:00 O2 Sat by Pulse Oximetry (%) 95 12/16/18 08:33 Constitutional: Yes: No Distress, Calm Cardiovascular: Yes: Regular Rate and Rhythm Respiratory: Yes: Regular, CTA Bilaterally Gastrointestinal: Yes: Normal Bowel Sounds, Soft Musculoskeletal: Yes: WNL Extremities: Yes: WNL Neurological: Yes: Alert, Oriented Psychiatric: Yes: Alert, Oriented Labs: CBC, BMP 12/16/18 10:30 12/16/18 10:30 INR, PTT INR 0.99 (0.83-1.09) 12/11/18 11:44 Assessment/Plan 48 year old male with past medical history of right-sided nephrectomy in 2014 ( done at [facility] with Dr. Miles) for recurrent kidney infections. His other past medical history includes hypertension and diabetes. ------ right nephrectomy 2014 Hypertension Diabetes ----- Left Pylonephritis Left flank pain, improving Hypertension. controlled Diabetes Substance abuse plan patient can be discharged on 7 days of augmentin give 500 mg bid for 7 days rest as per the team
[2018-12-16 15:00] VITALS: BP 140/86; PULSE 88; TEMP 97.8
== END 2018-12-16 15:30 | disposition home or self-care (01) | DRG 463 ==
LOC: JER 10:36 → JERBED 15:25 → J6S 20:12 → OBSVTOIN 12-12 15:25
PROVIDERS: ADMIT Internal Medicine; ATTEND Nurse Practitioner Family
DX: N10 Acute pyelonephritis (principal); E11.9 Type 2 diabetes mellitus without complications; F12.10 Cannabis abuse, uncomplicated; I12.9 Hypertensive chronic kidney disease with stage 1 through stage 4 chronic kidney disease, or unspecified chronic kidney disease; N18.9 Chronic kidney disease, unspecified; N28.1 Cyst of kidney, acquired; B96.20 Unspecified Escherichia coli [E. coli] as the cause of diseases classified elsewhere
CPT/HCPCS: 36415; 74176-TC; 76775-TC; 80053; 81003; 81015; 82962; 83036; 83605; 83735; 85025; 85027; 85610; 87086; 87186; 93005; 93010; 99283-25; G0378; J0131; J7030